=== PATIENT | male | born 1960 | race Caucasian/White ===

== ENCOUNTER 2019-09-16 16:52 | Outpatient (CLI) | payer OTHER, SELFPAY ==
[2019-09-16 17:12] LABS: Basophils Absolute Auto 0.1 K/mm3 (0.0-0.1); Basophils Percent Auto 0.8 % (0.2-1.2); Eosinophils Absolute Auto 0.3 K/mm3 (0-0.3); Eosinophils Percent Auto 4.1 % (0-4.4); Hematocrit 39.3 % (42.0-52.0); Hemoglobin 13.1 g/dL (14.0-18.0); Immature Granulocyte Absolute 0.01 K/mm3 (0.00-0.031); Immature Granulocyte Percent A 0.2 % (0-0.5); Lymphocytes Absolute Auto 1.22 K/mm3 (0.9-3.2); Lymphocytes Percent Auto 18.6 % (18.3-44.2); Mean Corpuscular HGB Conc 33.3 g/dl (32-36); Mean Corpuscular Hemoglobin 30.1 pg (26-34); Mean Corpuscular Volume 90.3 fl (80-100); Mean Platelet Volume 10.7 fl (7.4-10.4); Monocytes Absolute Auto 0.6 K/mm3 (0.1-0.6); Monocytes Percent Auto 8.5 % (2.6-8.5); Neutrophils Absolute Auto 4.5 K/mm3 (1.3-6.7); Neutrophils Percent Auto 67.8 % (45.5-73.1); Platelet Count Result 213 k/mm3 (150-375); Red Blood Count 4.35 M/mm3 (4.6-6.20); Red Cell Distribution Width 14.4 % (11.5-14.5); White Blood Count 6.6 K/mm3 (4.5-10.0)
[2019-09-16 17:26] LABS: Alanine Aminotransferase 32 U/L (4-50); Albumin Level 4.2 g/dL (3.5-5.1); Alkaline Phosphatase 45 U/L (38-126); Aspartate Amino Transferase 30 U/L (17-59); Bilirubin,Total 0.4 mg/dL (0.2-1.3); Blood Urea Nitrogen 25 mg/dL (9-20); Calcium 9.3 mg/dL (8.4-10.2); Carbon Dioxide 28 mmol/L (22-30); Chloride 97 mmol/L (98-107); Estimated Glomerular Filt Rate 56; Glucose 99 mg/dL (75-110); Potassium 3.8 mmol/L (3.4-5.0); Sodium 139 mmol/L (137-145)
[2019-09-21 16:00] LABS: BCR/abl Prior Result See Report; BCR/abl1/abl1% (IS) 0.916 %
[2019-09-21 16:46] LABS: BCR/abl P210 Detected
[2019-09-21 16:47] LABS: BCR/abl P210 Chg YES
== END 2019-09-16 16:53 | disposition home or self-care (01) ==
LOC: ANHLAB 16:52
PROVIDERS: PCP Internal Medicine; Visit Provider Internal Medicine Hematology & Oncology
DX: C92.10 Chronic myeloid leukemia, BCR/ABL-positive, not having achieved remission (principal)
CPT/HCPCS: 36415; 80053; 81207; 85025

== ENCOUNTER 2019-12-10 15:55 | Outpatient (CLI) | payer OTHER, SELFPAY ==
[2019-12-10 16:44] LABS: Basophils Percent Auto 0.5 % (0.2-1.2); Eosinophils Absolute Auto 0.3 K/mm3 (0-0.3); Eosinophils Percent Auto 3.2 % (0-4.4); Hematocrit 41.7 % (42.0-52.0); Hemoglobin 14.2 g/dL (14.0-18.0); Immature Granulocyte Absolute 0.03 K/mm3 (0.00-0.031); Immature Granulocyte Percent A 0.4 % (0-0.5); Lymphocytes Percent Auto 12.9 % (18.3-44.2); Mean Corpuscular HGB Conc 34.1 g/dl (32-36); Mean Corpuscular Hemoglobin 30.7 pg (26-34); Mean Corpuscular Volume 90.3 fl (80-100); Mean Platelet Volume 10.7 fl (7.4-10.4); Monocytes Absolute Auto 0.6 K/mm3 (0.1-0.6); Monocytes Percent Auto 7.4 % (2.6-8.5); Neutrophils Absolute Auto 6.5 K/mm3 (1.3-6.7); Neutrophils Percent Auto 75.6 % (45.5-73.1); Platelet Count Result 206 k/mm3 (150-375); Red Blood Count 4.62 M/mm3 (4.6-6.20); Red Cell Distribution Width 12.8 % (11.5-14.5); White Blood Count 8.6 K/mm3 (4.5-10.0)
[2019-12-10 17:01] LABS: Alanine Aminotransferase 27 U/L (4-50); Albumin Level 4.6 g/dL (3.5-5.1); Alkaline Phosphatase 55 U/L (38-126); Aspartate Amino Transferase 28 U/L (17-59); Bilirubin,Total 0.5 mg/dL (0.2-1.3); Blood Urea Nitrogen 20 mg/dL (9-20); Calcium 9.3 mg/dL (8.4-10.2); Carbon Dioxide 31 mmol/L (22-30); Chloride 101 mmol/L (98-107); Estimated Glomerular Filt Rate > 60; Glucose 105 mg/dL (75-110); Potassium 4.1 mmol/L (3.4-5.0); Sodium 139 mmol/L (137-145)
[2019-12-16 12:11] LABS: BCR/abl Prior Result See Report; BCR/abl1/abl1% (IS) 0.124 %
[2019-12-16 12:58] LABS: BCR/abl P210 Detected
[2019-12-16 12:59] LABS: BCR/abl P210 Chg YES
== END 2019-12-10 15:56 | disposition home or self-care (01) ==
PROVIDERS: PCP Internal Medicine; Visit Provider Internal Medicine Hematology & Oncology
DX: C92.10 Chronic myeloid leukemia, BCR/ABL-positive, not having achieved remission (principal)
CPT/HCPCS: 36415; 80053; 81207; 85025

== ENCOUNTER 2020-02-03 07:45 | Outpatient (CLI) | payer OTHER, SELFPAY ==
[2020-02-03 08:15] LABS: Cholesterol 117 mg/dL (0-200); HDL Direct 29 mg/dL; Triglycerides 111 mg/dL (<150)
[2020-02-03 08:25] LABS: LDL Cholesterol Direct 66 mg/dL
[2020-02-03 08:47] LABS: Prostate Specific Antigen 0.8 ng/mL (< OR = 4.0)
== END 2020-02-03 07:46 | disposition home or self-care (01) ==
PROVIDERS: PCP Internal Medicine; Visit Provider Clinical Nurse Specialist
DX: Z13.220 Encounter for screening for lipoid disorders (principal); Z12.5 Encounter for screening for malignant neoplasm of prostate
CPT/HCPCS: 36415; 80061; 84153; G0103

== ENCOUNTER 2020-03-09 17:04 | Outpatient (CLI) | payer OTHER, SELFPAY ==
[2020-03-09 17:26] LABS: Basophils Percent Auto 0.4 % (0.2-1.2); Eosinophils Absolute Auto 0.2 K/mm3 (0-0.3); Eosinophils Percent Auto 2.9 % (0-4.4); Hematocrit 36.9 % (42.0-52.0); Hemoglobin 12.7 g/dL (14.0-18.0); Immature Granulocyte Absolute 0.01 K/mm3 (0.00-0.031); Immature Granulocyte Percent A 0.1 % (0-0.5); Lymphocytes Absolute Auto 1.27 K/mm3 (0.9-3.2); Lymphocytes Percent Auto 18.7 % (18.3-44.2); Mean Corpuscular HGB Conc 34.4 g/dl (32-36); Mean Corpuscular Hemoglobin 30.9 pg (26-34); Mean Corpuscular Volume 89.8 fl (80-100); Mean Platelet Volume 10.7 fl (7.4-10.4); Monocytes Absolute Auto 0.5 K/mm3 (0.1-0.6); Monocytes Percent Auto 6.8 % (2.6-8.5); Neutrophils Absolute Auto 4.8 K/mm3 (1.3-6.7); Neutrophils Percent Auto 71.1 % (45.5-73.1); Platelet Count Result 200 k/mm3 (150-375); Red Blood Count 4.11 M/mm3 (4.6-6.20); Red Cell Distribution Width 13.7 % (11.5-14.5); White Blood Count 6.8 K/mm3 (4.5-10.0)
[2020-03-09 17:38] LABS: Alanine Aminotransferase 21 U/L (4-50); Albumin Level 4.3 g/dL (3.5-5.1); Alkaline Phosphatase 45 U/L (38-126); Anion Gap 10.8 mmol/L (7-16); Aspartate Amino Transferase 25 U/L (17-59); Bilirubin,Total 0.5 mg/dL (0.2-1.3); Blood Urea Nitrogen 22 mg/dL (9-20); Calcium 8.7 mg/dL (8.4-10.2); Carbon Dioxide 30 mmol/L (22-30); Chloride 102 mmol/L (98-107); Estimated Glomerular Filt Rate 56; Glucose 101 mg/dL (75-110); Potassium 3.8 mmol/L (3.4-5.0); Sodium 139 mmol/L (137-145)
[2020-03-15 16:19] LABS: BCR/abl Prior Result See Report; BCR/abl1/abl1% (IS) 0.056 %
[2020-03-15 17:05] LABS: BCR/abl P210 Detected
[2020-03-15 17:06] LABS: BCR/abl P210 Chg YES
== END 2020-03-09 17:05 | disposition home or self-care (01) ==
PROVIDERS: PCP Internal Medicine; Visit Provider Internal Medicine Hematology & Oncology
DX: C92.10 Chronic myeloid leukemia, BCR/ABL-positive, not having achieved remission (principal)
CPT/HCPCS: 36415; 80053; 81207; 85025

== ENCOUNTER 2020-06-07 17:04 | Outpatient (CLI) | payer OTHER, SELFPAY ==
[2020-06-07 17:35] LABS: Basophils Percent Auto 0.4 % (0.2-1.2); Eosinophils Absolute Auto 0.4 K/mm3 (0-0.3); Eosinophils Percent Auto 6.2 % (0-4.4); Hematocrit 39.4 % (42.0-52.0); Hemoglobin 13.4 g/dL (14.0-18.0); Immature Granulocyte Absolute 0.01 K/mm3 (0.00-0.031); Immature Granulocyte Percent A 0.1 % (0-0.5); Lymphocytes Absolute Auto 1.39 K/mm3 (0.9-3.2); Mean Corpuscular Hemoglobin 30.8 pg (26-34); Mean Corpuscular Volume 90.6 fl (80-100); Mean Platelet Volume 10.6 fl (7.4-10.4); Monocytes Absolute Auto 0.6 K/mm3 (0.1-0.6); Monocytes Percent Auto 8.2 % (2.6-8.5); Neutrophils Absolute Auto 4.5 K/mm3 (1.3-6.7); Neutrophils Percent Auto 65.1 % (45.5-73.1); Platelet Count Result 212 k/mm3 (150-375); Red Blood Count 4.35 M/mm3 (4.6-6.20); Red Cell Distribution Width 13.2 % (11.5-14.5); White Blood Count 6.9 K/mm3 (4.5-10.0)
[2020-06-07 18:06] LABS: Alanine Aminotransferase 23 U/L (4-50); Albumin Level 4.5 g/dL (3.5-5.1); Alkaline Phosphatase 42 U/L (38-126); Anion Gap 5 mmol/L (8-16); Aspartate Amino Transferase 28 U/L (17-59); Bilirubin,Total 0.4 mg/dL (0.2-1.3); Blood Urea Nitrogen 20 mg/dL (9-20); Calcium 9.2 mg/dL (8.4-10.2); Carbon Dioxide 35 mmol/L (22-30); Chloride 102 mmol/L (98-107); Estimated Glomerular Filt Rate > 60; Glucose 109 mg/dL (75-110); Potassium 3.7 mmol/L (3.4-5.0); Sodium 142 mmol/L (137-145)
[2020-06-11 10:44] LABS: BCR/abl Prior Result See Report; BCR/abl1/abl1% (IS) 0.048 %
[2020-06-11 11:30] LABS: BCR/abl P210 Detected
[2020-06-11 11:31] LABS: BCR/abl P210 Chg YES
== END 2020-06-07 17:05 | disposition home or self-care (01) ==
LOC: ANHLAB 17:07
PROVIDERS: PCP Internal Medicine; Visit Provider Internal Medicine Hematology & Oncology
DX: C92.10 Chronic myeloid leukemia, BCR/ABL-positive, not having achieved remission (principal)
CPT/HCPCS: 36415; 80053; 81207; 85025

== ENCOUNTER 2020-09-13 09:42 | Outpatient (CLI) | payer OTHER, SELFPAY ==
[2020-09-13 10:33] LABS: Basophils Absolute Auto 0.1 K/mm3 (0.0-0.1); Basophils Percent Auto 0.7 % (0.2-1.2); Eosinophils Absolute Auto 0.3 K/mm3 (0-0.3); Eosinophils Percent Auto 4.1 % (0-4.4); Hematocrit 39.9 % (42.0-52.0); Hemoglobin 13.5 g/dL (14.0-18.0); Immature Granulocyte Absolute 0.02 K/mm3 (0.00-0.031); Immature Granulocyte Percent A 0.3 % (0-0.5); Lymphocytes Absolute Auto 1.33 K/mm3 (0.9-3.2); Lymphocytes Percent Auto 18.2 % (18.3-44.2); Mean Corpuscular HGB Conc 33.8 g/dl (32-36); Mean Corpuscular Hemoglobin 31.3 pg (26-34); Mean Corpuscular Volume 92.6 fl (80-100); Mean Platelet Volume 11.2 fl (7.4-10.4); Monocytes Absolute Auto 0.4 K/mm3 (0.1-0.6); Neutrophils Absolute Auto 5.2 K/mm3 (1.3-6.7); Neutrophils Percent Auto 70.7 % (45.5-73.1); Platelet Count Result 209 k/mm3 (150-375); Red Blood Count 4.31 M/mm3 (4.6-6.20); Red Cell Distribution Width 13.2 % (11.5-14.5); White Blood Count 7.3 K/mm3 (4.5-10.0)
[2020-09-13 10:45] LABS: Alanine Aminotransferase 31 U/L (4-50); Albumin Level 4.1 g/dL (3.5-5.1); Alkaline Phosphatase 42 U/L (38-126); Anion Gap 6 mmol/L (8-16); Aspartate Amino Transferase 34 U/L (17-59); Bilirubin,Total 0.6 mg/dL (0.2-1.3); Blood Urea Nitrogen 24 mg/dL (9-20); Carbon Dioxide 31 mmol/L (22-30); Chloride 105 mmol/L (98-107); Estimated Glomerular Filt Rate 56; Glucose 125 mg/dL (75-110); Sodium 142 mmol/L (137-145)
[2020-09-20 13:09] LABS: BCR/abl Prior Result See Report
[2020-09-20 13:55] LABS: BCR/abl P210 Detected; BCR/abl P210 Chg YES
== END 2020-09-13 09:43 | disposition home or self-care (01) ==
PROVIDERS: PCP Internal Medicine; Visit Provider Nurse Practitioner Adult Health
DX: C92.10 Chronic myeloid leukemia, BCR/ABL-positive, not having achieved remission (principal)
CPT/HCPCS: 36415; 80053; 81207; 85025

== ENCOUNTER 2020-10-18 17:13 | Outpatient (CLI) | payer OTHER, SELFPAY | END 2020-10-18 17:14 | disposition home or self-care (01) | LOC: ANHCOVIDVC 17:13 | PROVIDERS: PCP Internal Medicine | DX: Z23 Encounter for immunization (principal) | CPT/HCPCS: 0001A; 91300 ==

== ENCOUNTER 2020-11-08 17:17 | Outpatient (CLI) | payer OTHER, SELFPAY | END 2020-11-08 17:18 | disposition home or self-care (01) | LOC: ANHCOVIDVC 17:17 | PROVIDERS: PCP Internal Medicine | DX: Z23 Encounter for immunization (principal) | CPT/HCPCS: 0002A; 91300 ==

== ENCOUNTER 2020-12-20 13:18 | Outpatient (CLI) | payer OTHER, SELFPAY ==
[2020-12-20 14:11] LABS: Basophils Percent Auto 0.5 % (0.2-1.2); Eosinophils Absolute Auto 0.3 K/mm3 (0-0.3); Eosinophils Percent Auto 4.6 % (0-4.4); Hematocrit 40.2 % (42.0-52.0); Hemoglobin 13.7 g/dL (14.0-18.0); Immature Granulocyte Absolute 0.01 K/mm3 (0.00-0.031); Immature Granulocyte Percent A 0.2 % (0-0.5); Lymphocytes Absolute Auto 1.23 K/mm3 (0.9-3.2); Lymphocytes Percent Auto 19.6 % (18.3-44.2); Mean Corpuscular HGB Conc 34.1 g/dl (32-36); Mean Corpuscular Hemoglobin 30.8 pg (26-34); Mean Corpuscular Volume 90.3 fl (80-100); Mean Platelet Volume 11.2 fl (7.4-10.4); Monocytes Absolute Auto 0.5 K/mm3 (0.1-0.6); Monocytes Percent Auto 7.3 % (2.6-8.5); Neutrophils Absolute Auto 4.3 K/mm3 (1.3-6.7); Neutrophils Percent Auto 67.8 % (45.5-73.1); Platelet Count Result 222 k/mm3 (150-375); Red Blood Count 4.45 M/mm3 (4.6-6.20); Red Cell Distribution Width 13.2 % (11.5-14.5); White Blood Count 6.3 K/mm3 (4.5-10.0)
[2020-12-20 14:54] LABS: Alanine Aminotransferase 33 U/L (4-50); Albumin Level 4.5 g/dL (3.5-5.1); Alkaline Phosphatase 52 U/L (38-126); Anion Gap 7 mmol/L (8-16); Aspartate Amino Transferase 33 U/L (17-59); Bilirubin,Total 0.6 mg/dL (0.2-1.3); Blood Urea Nitrogen 20 mg/dL (9-20); Calcium 9.5 mg/dL (8.4-10.2); Carbon Dioxide 29 mmol/L (22-30); Chloride 104 mmol/L (98-107); Estimated Glomerular Filt Rate > 60; Glucose 98 mg/dL (75-110); Potassium 3.6 mmol/L (3.4-5.0); Sodium 140 mmol/L (137-145)
[2020-12-23 10:23] LABS: BCR/abl Prior Result See Report; BCR/abl1/abl1% (IS) 0.018 %
[2020-12-23 11:09] LABS: BCR/abl P210 Detected; BCR/abl P210 Chg YES
== END 2020-12-20 13:19 | disposition home or self-care (01) ==
LOC: ANHLAB 13:20
PROVIDERS: PCP Internal Medicine; Visit Provider Internal Medicine Hematology & Oncology
DX: C92.10 Chronic myeloid leukemia, BCR/ABL-positive, not having achieved remission (principal)
CPT/HCPCS: 36415; 80053; 81207; 85025

== ENCOUNTER 2021-05-23 17:14 | Outpatient (CLI) | payer OTHER, SELFPAY ==
[2021-05-23 17:33] LABS: Basophils Absolute Auto 0.1 K/mm3 (0.0-0.1); Basophils Percent Auto 0.7 % (0.2-1.2); Eosinophils Absolute Auto 0.3 K/mm3 (0-0.3); Eosinophils Percent Auto 4.6 % (0-4.4); Hematocrit 39.4 % (42.0-52.0); Hemoglobin 13.4 g/dL (14.0-18.0); Immature Granulocyte Absolute 0.01 K/mm3 (0.00-0.031); Immature Granulocyte Percent A 0.1 % (0-0.5); Lymphocytes Absolute Auto 1.23 K/mm3 (0.9-3.2); Lymphocytes Percent Auto 17.9 % (18.3-44.2); Mean Corpuscular Hemoglobin 31.8 pg (26-34); Mean Corpuscular Volume 93.4 fl (80-100); Mean Platelet Volume 10.7 fl (7.4-10.4); Monocytes Absolute Auto 0.6 K/mm3 (0.1-0.6); Monocytes Percent Auto 8.3 % (2.6-8.5); Neutrophils Absolute Auto 4.7 K/mm3 (1.3-6.7); Neutrophils Percent Auto 68.4 % (45.5-73.1); Platelet Count Result 207 k/mm3 (150-375); Red Blood Count 4.22 M/mm3 (4.6-6.20); Red Cell Distribution Width 13.2 % (11.5-14.5); White Blood Count 6.9 K/mm3 (4.5-10.0)
[2021-05-23 17:45] LABS: Alanine Aminotransferase 33 U/L (4-50); Albumin Level 4.7 g/dL (3.5-5.1); Alkaline Phosphatase 42 U/L (38-126); Anion Gap 9 mmol/L (8-16); Aspartate Amino Transferase 28 U/L (17-59); Bilirubin,Total 0.4 mg/dL (0.2-1.3); Blood Urea Nitrogen 18 mg/dL (9-20); Calcium 9.1 mg/dL (8.4-10.2); Carbon Dioxide 31 mmol/L (22-30); Chloride 100 mmol/L (98-107); Cholesterol 132 mg/dL (0-200); Estimated Glomerular Filt Rate > 60; Glucose 107 mg/dL (65-110); HDL Direct 34 mg/dL; Potassium 3.8 mmol/L (3.4-5.0); Sodium 140 mmol/L (137-145); Triglycerides 143 mg/dL (<150)
[2021-05-23 17:55] LABS: LDL Cholesterol Direct 78 mg/dL
[2021-05-23 18:15] LABS: Prostate Specific Antigen 0.8 ng/mL (< OR = 4.0)
== END 2021-05-23 17:15 | disposition home or self-care (01) ==
PROVIDERS: PCP Internal Medicine; Visit Provider Clinical Nurse Specialist
DX: Z12.5 Encounter for screening for malignant neoplasm of prostate (principal); I10 Essential (primary) hypertension; Z13.220 Encounter for screening for lipoid disorders
CPT/HCPCS: 36415; 80053; 80061; 84153; 85025; G0103

== ENCOUNTER 2021-06-27 15:46 | Outpatient (CLI) | payer OTHER, SELFPAY ==
[2021-06-27 16:24] LABS: Basophils Absolute Auto 0.1 K/mm3 (0.0-0.1); Basophils Percent Auto 0.6 % (0.2-1.2); Eosinophils Absolute Auto 0.3 K/mm3 (0-0.3); Eosinophils Percent Auto 4.1 % (0-4.4); Hematocrit 38.7 % (42.0-52.0); Hemoglobin 13.2 g/dL (14.0-18.0); Immature Granulocyte Absolute 0.02 K/mm3 (0.00-0.031); Immature Granulocyte Percent A 0.2 % (0-0.5); Lymphocytes Absolute Auto 1.33 K/mm3 (0.9-3.2); Lymphocytes Percent Auto 16.6 % (18.3-44.2); Mean Corpuscular HGB Conc 34.1 g/dl (32-36); Mean Corpuscular Hemoglobin 31.5 pg (26-34); Mean Corpuscular Volume 92.4 fl (80-100); Mean Platelet Volume 10.7 fl (7.4-10.4); Monocytes Absolute Auto 0.6 K/mm3 (0.1-0.6); Monocytes Percent Auto 6.8 % (2.6-8.5); Neutrophils Absolute Auto 5.8 K/mm3 (1.3-6.7); Neutrophils Percent Auto 71.7 % (45.5-73.1); Platelet Count Result 191 k/mm3 (150-375); Red Blood Count 4.19 M/mm3 (4.6-6.20); Red Cell Distribution Width 13.3 % (11.5-14.5)
[2021-06-27 16:36] LABS: Alanine Aminotransferase 34 U/L (4-50); Albumin Level 4.2 g/dL (3.5-5.1); Alkaline Phosphatase 45 U/L (38-126); Anion Gap 4 mmol/L (8-16); Aspartate Amino Transferase 31 U/L (17-59); Bilirubin,Total 0.5 mg/dL (0.2-1.3); Blood Urea Nitrogen 26 mg/dL (9-20); Calcium 9.3 mg/dL (8.4-10.2); Carbon Dioxide 32 mmol/L (22-30); Chloride 105 mmol/L (98-107); Estimated Glomerular Filt Rate > 60; Glucose 128 mg/dL (65-110); Sodium 141 mmol/L (137-145)
[2021-07-01 14:12] LABS: BCR/abl Prior Result See Report; BCR/abl1/abl1% (IS) 0.014 %
[2021-07-01 14:57] LABS: BCR/abl P210 Detected
[2021-07-01 14:58] LABS: BCR/abl P210 Chg YES
== END 2021-06-27 15:47 | disposition home or self-care (01) ==
LOC: ANHLAB 15:48
PROVIDERS: PCP Internal Medicine; Visit Provider Internal Medicine Hematology & Oncology
DX: C92.10 Chronic myeloid leukemia, BCR/ABL-positive, not having achieved remission (principal)
CPT/HCPCS: 36415; 80053; 81207; 85025

== ENCOUNTER 2021-11-16 22:17 | Emergency (ER) | payer OTHER, SELFPAY ==
--- NOTE | ~2021-11-16 | XR_ITS ---
EXAMINATION: XR chest 1V portable INDICATION: Shortness of breath TECHNIQUE: Portable AP chest at 0056 hours COMPARISON: 11/13/2018 FINDINGS: The lungs are free of acute opacities. There is no pleural effusion or pneumothorax. The he art size is upper limits of normal for technique. IMPRESSION: 1. No acute cardiopulmonary abnormality. Reviewed, dictated and finalized at location A.
--- NOTE | ~2021-11-16 | CT_ITS ---
EXAMINATION: CT brain wo con INDICATION: Headache COMPARISON: None TECHNIQUE: Standard unenhanced head CT. The dose-length product (DLP) was 681.00 mGy-cm. The mA was a djusted according to patient size. Iterative reconstruction technique was employed. FINDINGS: There is no intracranial hemorrhage, acute infarction, or abnormal mass lesion. The ventric les are normal. There is no abnormal mass effect or midline shift. The hassan-white matter differentiat ion is normal. The basal cisterns are patent. The orbits are normal. There is mild mucosal thickening of the paranasal sinuses. IMPRESSION: 1. No acute intracranial abnormality. Reviewed, dictated and finalized at location A.
[2021-11-16 22:21] VITALS: BP 145/86; PULSE 80; RESP 16; TEMP 36.3; O2SAT 98
[2021-11-17] VITALS (9 sets, daily range): BP systolic 117–131; BP diastolic 78–85; PULSE 71–82; RESP 16–20; O2SAT 96–99
--- NOTE | 2021-11-17 00:25 | ECG_ITS ---
Measurements Intervals [place] Rate: 74 P: 0 NE: 191 QRS: -16 QRSD: 96 T: 43 QT: 388 QTc: 432 Interpretive Statements SINUS RHYTHM POSSIBLE RIGHT VENTRICULAR CONDUCTION DELAY [RSR (QR) IN V1/V2] MODERATE VOLTAGE CRITERIA FOR LVH, CONSIDER NORMAL VARIANT [MEETS CRITERIA IN ONE OF: R(aVL), S(V1), R(V5), R(V5/V6)+S(V1)] ABNORMAL ECG Electronically Signed On 11-17-2021 16:48:54 CDT by Tre Mendoza M.D.
--- NOTE | 2021-11-17 00:26 | ED.GENADULT ---
HPI - General Adult General Chief complaint: Extremity Problem,Nontraumatic Stated complaint: L leg tingling, H/A, dizziness Time Seen by Provider: 11/17/21 00:18 Source: patient and family Mode of arrival: ambulatory Limitations: no limitations History of Present Illness HPI narrative: 61-year-old male presents to emergency room accompanied by his . Actually comes in with a multitude of issues. They are out of town on vacation a few weeks ago in [place] and he has some severe vertigo. Also been having some issues with his blood pressure not being adequately controlled. He had some muscle spasms and cramps to his left calf and several days ago and still having some aching from that. Get some numbness down his left leg. Denies any back pain. was concerned today and she thought maybe he was having little drooping to the right side of his face. However does get no weakness to his arms or legs. He is speaking clearly. Walking without any difficulty. 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 Related Data Home Medications Medication Instructions Recorded Confirmed imatinib 400 mg tablet 400 mg PO DAILY 03/24/20 06/09/21 Allergies Allergy/AdvReac Type Severity Reaction Status Date / Time No Known Allergies Allergy Unverified 03/03/19 11:15 Review of Systems Review of Systems: CONSTITUTIONAL: Denies fever, chills, or sweats. EYES: Denies visual changes, redness, or discharge. ENT: Denies rhinorrhea, congestion, sore throat, or otalgia. CARDIOVASCULAR: Denies chest pain, palpitations, or edema. RESPIRATORY: Denies cough or dyspnea. GASTROINTESTINAL: Denies abdominal pain, nausea, vomiting, or diarrhea. GENITOURINARY: Denies dysuria or hematuria. SKIN: Denies rash or itching. MUSCULOSKELETAL: Has some edema to his lower extremities but more dependent in nature. Having some numbness to his left leg. NEUROLOGIC: Denies headache, numbness, or weakness. PSYCHIATRIC: Denies anxiety or depression. [facility] Family History Family History Father Hypertension Family history of chronic obstructive pulmonary disease Other Family history of osteoporosis Family history of rheumatoid arthritis Social History Social History Smoking status: Never smoker Second hand tobacco smoke exposure: No Alcohol intake: never Exam Narrative: APPEARANCE: Well appearing, no pain or distress, well-nourished. Head normocephalic and atraumatic. EYES: PERRLA/EOMI, conjunctivae very clear. NOSE: Normal with no drainage EARS:TMS clear Андрей [place], with good light reflex. THROAT: Pharynx clear, no exudate. NECK: Supple. No adenopathy, no masses. RESPIRATORY: Airway patent, respirations nonlabored. Clear to auscultation bilaterally, no rales, rhonchi, wheezing. CARDIOVASCULAR: Regular rate and rhythm without murmurs, rubs, or gallops. ABDOMINAL: Soft, nontender, nondistended, no hepatosplenomegaly Musculoskeletal: Moves all extremities. Strength/ROM intact, No calf tenderness. . +2/4 pitting edema both lower extremities equal. NEURO: Alert. Cranial nerves II through XII intact. Normal gait. Good coordination. Nonfocal examination. SKIN:: Warm, dry. Normal Color PSYCHIATRIC: Normal affect/mood, normal interaction Course Vital Signs Vital signs: Vital Signs Temperature 97.4 F L 11/16/21 22:21 Pulse Rate 80 11/16/21 22:21 Respiratory Rate 16 11/16/21 22:21 Blood Pressure 145/86 H 11/16/21 22:21 Pulse Oximetry 98 11/16/21 22:21 Temperature 97.4 F L 11/16/21 22:21 Pulse Rate 79 11/17/21 00:47 Respiratory Rate 18 11/17/21 00:47 Blood Pressure 120/85 11/17/21 00:47 Pulse Oximetry 97 11/17/21 00:47 Medical Decision Making [facility] Narrative Medical decision making narrative: Patient has multiple vague complaints. Work-up and evaluation shows no acut
[2021-11-17 01:14] LABS: Basophils Absolute Auto 0.1 K/mm3 (0.0-0.1); Basophils Percent Auto 0.7 % (0.2-1.2); Eosinophils Absolute Auto 0.4 K/mm3 (0-0.3); Eosinophils Percent Auto 5.2 % (0-4.4); Hematocrit 39.2 % (42.0-52.0); Hemoglobin 13.5 g/dL (14.0-18.0); Immature Granulocyte Absolute 0.01 K/mm3 (0.00-0.031); Immature Granulocyte Percent A 0.1 % (0-0.5); Lymphocytes Absolute Auto 1.59 K/mm3 (0.9-3.2); Lymphocytes Percent Auto 22.6 % (18.3-44.2); Mean Corpuscular HGB Conc 34.4 g/dl (32-36); Mean Corpuscular Hemoglobin 31.2 pg (26-34); Mean Corpuscular Volume 90.5 fl (80-100); Mean Platelet Volume 11.5 fl (7.4-10.4); Monocytes Absolute Auto 0.6 K/mm3 (0.1-0.6); Monocytes Percent Auto 8.4 % (2.6-8.5); Neutrophils Absolute Auto 4.4 K/mm3 (1.3-6.7); Platelet Count Result 207 k/mm3 (150-375); Red Blood Count 4.33 M/mm3 (4.6-6.20); Red Cell Distribution Width 13.1 % (11.5-14.5); White Blood Count 7.1 K/mm3 (4.5-10.0)
[2021-11-17 01:19] LABS: Alanine Aminotransferase 53 U/L (4-50); Albumin Level 4.3 g/dL (3.5-5.1); Alkaline Phosphatase 40 U/L (38-126); Anion Gap 9 mmol/L (8-16); Aspartate Amino Transferase 50 U/L (17-59); Bilirubin,Total 0.3 mg/dL (0.2-1.3); Blood Urea Nitrogen 27 mg/dL (9-20); Calcium 8.6 mg/dL (8.4-10.2); Carbon Dioxide 23 mmol/L (22-30); Chloride 107 mmol/L (98-107); Estimated CRCL calculation 75 ml/min; Estimated Glomerular Filt Rate > 60; Glucose 107 mg/dL (65-110); Potassium 3.7 mmol/L (3.4-5.0); Sodium 139 mmol/L (137-145)
== END 2021-11-17 01:59 | disposition home or self-care (01) ==
PROVIDERS: Emergency Provider Emergency Medicine; PCP Internal Medicine
DX: M79.662 Pain in left lower leg (principal); R60.9 Edema, unspecified; C92.11 Chronic myeloid leukemia, BCR/ABL-positive, in remission
CPT/HCPCS: 36415; 70450; 71045; 80053; 85025; 93005; 99284

== ENCOUNTER 2021-11-17 15:20 | Outpatient (CLI) | payer OTHER, SELFPAY ==
--- NOTE | ~2021-11-17 | XR_ITS ---
XR lumbar spine min 4V DATE: 11/17/2021 15:39 INDICATION: Left leg pain. Anesthesias skin. Leg cramping. No injury. TECHNIQUE: AP, lateral, coned lateral lumbosacral and bilateral oblique views COMPARISON: None FINDINGS: There is mild levoscoliosis of the thoracolumbar spine. Degenerative spurring in the lower thoracic spine. No fracture or bone destruction, spondylolysis or spondylolisthesis. There is mild to moderate degene rative disc disease throughout the lumbar spine. The sacroiliac joints are intact. IMPRESSION: Mild thoracolumbar levoscoliosis Mild to moderate degenerative disc disease of the lumbar spine Reviewed, dictated and finalized at location A.
--- NOTE | ~2021-11-17 | US_ITS ---
EXAMINATION: US venous doppler [facility] DATE: 11/17/2021 16:05 INDICATION: Left lower limb pain. TECHNIQUE: Grayscale ultrasound images without and with compression and Doppler ultrasound images of the left lower extremity veins were obtained. COMPARISON: Left knee MRI 05/16/2016 FINDINGS: The visualized portions of left common femoral vein, profunda (deep) femoral vein, femoral vein, popl iteal vein, peroneal veins, posterior tibial veins, and greater saphenous vein outflow are patent. Th ere is a moderate-sized left Del Castillo's cyst. IMPRESSION: 1. No deep venous thrombosis. 2. Moderate-sized left De Lcastillo's cyst. Reviewed, dictated and finalized at location A. IMPRESSION: 1. No deep venous thrombosis. 2. Moderate-sized left Del Castillo's cyst.
== END 2021-11-17 15:21 | disposition home or self-care (01) ==
LOC: ANHIMG 15:22
PROVIDERS: PCP Internal Medicine; Visit Provider Nurse Practitioner
DX: M79.605 Pain in left leg (principal); R60.9 Edema, unspecified; R20.0 Anesthesia of skin; M51.36 Other intervertebral disc degeneration, lumbar region; M71.22 Synovial cyst of popliteal space [Baker], left knee
CPT/HCPCS: 72110; 93971

== ENCOUNTER 2021-11-25 13:26 | Outpatient (CLI) | payer OTHER, SELFPAY ==
--- NOTE | ~2021-11-25 | MR_ITS ---
EXAMINATION: MR brain/brain stem wo/w con DATE: 11/25/2021 14:46 INDICATION: Headache, unspecified. TECHNIQUE: Magnetic resonance imaging (MRI) of the brain and brainstem was performed without and with 20 mL MultiHance intravenous contrast. COMPARISON: Head CT 11/17/2021 FINDINGS: There are scattered areas of nonspecific increased T2-weighted signal intensity in the cere bral white matter, which is within normal limits for the patient's age. There is no intracranial hemo rrhage, acute infarction, or abnormal intracranial mass lesion. The ventricles are normal in size. Th e internal auditory canals and inner and middle ears are normal. The mastoid air cells are normal. Th ere is mild mucosal thickening in the paranasal sinuses. The orbits are normal. IMPRESSION: 1. Normal aging brain. Reviewed, dictated and finalized at location B. IMPRESSION: 1. Normal aging brain.
== END 2021-11-25 13:27 | disposition home or self-care (01) ==
PROVIDERS: PCP Internal Medicine; Visit Provider Nurse Practitioner
DX: R42 Dizziness and giddiness (principal); R51.9 Headache, unspecified
CPT/HCPCS: 70553; A9577

== ENCOUNTER 2022-01-03 11:52 | Outpatient (CLI) | payer OTHER, SELFPAY ==
[2022-01-03 12:14] LABS: Basophils Percent Auto 0.6 % (0.2-1.2); Eosinophils Absolute Auto 0.3 K/mm3 (0-0.3); Eosinophils Percent Auto 5.2 % (0-4.4); Hematocrit 39.9 % (42.0-52.0); Hemoglobin 13.8 g/dL (14.0-18.0); Immature Granulocyte Absolute 0.02 K/mm3 (0.00-0.031); Immature Granulocyte Percent A 0.3 % (0-0.5); Lymphocytes Percent Auto 18.8 % (18.3-44.2); Mean Corpuscular HGB Conc 34.6 g/dl (32-36); Mean Corpuscular Hemoglobin 31.2 pg (26-34); Mean Corpuscular Volume 90.3 fl (80-100); Mean Platelet Volume 10.7 fl (7.4-10.4); Monocytes Absolute Auto 0.4 K/mm3 (0.1-0.6); Monocytes Percent Auto 6.7 % (2.6-8.5); Neutrophils Absolute Auto 4.4 K/mm3 (1.3-6.7); Neutrophils Percent Auto 68.4 % (45.5-73.1); Platelet Count Result 206 k/mm3 (150-375); Red Blood Count 4.42 M/mm3 (4.6-6.20); Red Cell Distribution Width 13.2 % (11.5-14.5); White Blood Count 6.4 K/mm3 (4.5-10.0)
[2022-01-03 12:33] LABS: Alanine Aminotransferase 52 U/L (6-50); Albumin Level 4.2 g/dL (3.5-5.1); Alkaline Phosphatase 48 U/L (38-126); Anion Gap 8 mmol/L (8-16); Aspartate Amino Transferase 59 U/L (17-59); Bilirubin,Total 0.4 mg/dL (0.2-1.3); Blood Urea Nitrogen 18 mg/dL (9-20); Calcium 8.8 mg/dL (8.4-10.2); Carbon Dioxide 28 mmol/L (22-30); Chloride 104 mmol/L (98-107); Estimated Glomerular Filt Rate > 60; Glucose 108 mg/dL (65-110); Potassium 4.3 mmol/L (3.4-5.0); Sodium 140 mmol/L (137-145)
[2022-01-05 15:53] LABS: BCR/abl P210 Detected; BCR/abl Prior Result See Report; BCR/abl1/abl1% (IS) 0.011 %
[2022-01-05 15:54] LABS: BCR/abl P210 Chg YES
== END 2022-01-03 11:53 | disposition home or self-care (01) ==
LOC: ANHLAB 11:54
PROVIDERS: PCP Internal Medicine; Visit Provider Internal Medicine Hematology & Oncology
DX: C92.10 Chronic myeloid leukemia, BCR/ABL-positive, not having achieved remission (principal)
CPT/HCPCS: 36415; 80053; 81207; 85025

== ENCOUNTER 2022-07-10 17:07 | Outpatient (CLI) | payer OTHER, SELFPAY ==
[2022-07-10 17:55] LABS: Basophils Absolute Auto 0.1 K/mm3 (0.0-0.1); Basophils Percent Auto 0.7 % (0.2-1.2); Eosinophils Absolute Auto 0.4 K/mm3 (0-0.3); Eosinophils Percent Auto 5.7 % (0-4.4); Hematocrit 39.3 % (42.0-52.0); Hemoglobin 13.6 g/dL (14.0-18.0); Immature Granulocyte Absolute 0.01 K/mm3 (0.00-0.031); Immature Granulocyte Percent A 0.1 % (0-0.5); Lymphocytes Absolute Auto 1.44 K/mm3 (0.9-3.2); Mean Corpuscular HGB Conc 34.6 g/dl (32-36); Mean Corpuscular Hemoglobin 31.1 pg (26-34); Mean Corpuscular Volume 89.9 fl (80-100); Mean Platelet Volume 10.9 fl (7.4-10.4); Monocytes Absolute Auto 0.5 K/mm3 (0.1-0.6); Monocytes Percent Auto 7.4 % (2.6-8.5); Neutrophils Absolute Auto 4.8 K/mm3 (1.3-6.7); Neutrophils Percent Auto 66.1 % (45.5-73.1); Platelet Count Result 220 k/mm3 (150-375); Red Blood Count 4.37 M/mm3 (4.6-6.20); Red Cell Distribution Width 13.1 % (11.5-14.5); White Blood Count 7.2 K/mm3 (4.5-10.0)
[2022-07-10 18:07] LABS: Alanine Aminotransferase 53 U/L (6-50); Albumin Level 4.6 g/dL (3.5-5.1); Alkaline Phosphatase 50 U/L (38-126); Anion Gap 10 mmol/L (8-16); Aspartate Amino Transferase 42 U/L (17-59); Bilirubin,Total 0.5 mg/dL (0.2-1.3); Blood Urea Nitrogen 17 mg/dL (9-20); Calcium 8.8 mg/dL (8.4-10.2); Carbon Dioxide 31 mmol/L (22-30); Chloride 99 mmol/L (98-107); Estimated Glomerular Filt Rate 56; Glucose 95 mg/dL (65-110); Sodium 140 mmol/L (137-145)
[2022-07-14 14:45] LABS: BCR/abl Prior Result See Report
[2022-07-14 15:32] LABS: BCR/abl P210 Detected
[2022-07-14 15:33] LABS: BCR/abl P210 Chg YES
== END 2022-07-10 17:08 | disposition home or self-care (01) ==
PROVIDERS: PCP Internal Medicine; Visit Provider Internal Medicine Hematology & Oncology
DX: C92.10 Chronic myeloid leukemia, BCR/ABL-positive, not having achieved remission (principal)
CPT/HCPCS: 36415; 80053; 81207; 85025

== ENCOUNTER 2023-01-04 16:59 | Outpatient (CLI) | payer OTHER, SELFPAY ==
[2023-01-04 17:52] LABS: Basophils Absolute Auto 0.1 K/mm3 (0.0-0.1); Basophils Percent Auto 0.9 % (0.2-1.2); Eosinophils Absolute Auto 0.5 K/mm3 (0-0.3); Eosinophils Percent Auto 6.5 % (0-4.4); Hematocrit 38.8 % (42.0-52.0); Hemoglobin 13.3 g/dL (14.0-18.0); Immature Granulocyte Absolute 0.01 K/mm3 (0.00-0.031); Immature Granulocyte Percent A 0.1 % (0-0.5); Lymphocytes Absolute Auto 1.37 K/mm3 (0.9-3.2); Lymphocytes Percent Auto 19.8 % (18.3-44.2); Mean Corpuscular HGB Conc 34.3 g/dl (32-36); Mean Corpuscular Hemoglobin 31.1 pg (26-34); Mean Corpuscular Volume 90.7 fl (80-100); Mean Platelet Volume 11.2 fl (7.4-10.4); Monocytes Absolute Auto 0.5 K/mm3 (0.1-0.6); Monocytes Percent Auto 7.8 % (2.6-8.5); Neutrophils Absolute Auto 4.5 K/mm3 (1.3-6.7); Neutrophils Percent Auto 64.9 % (45.5-73.1); Platelet Count Result 216 k/mm3 (150-375); Red Blood Count 4.28 M/mm3 (4.6-6.20); Red Cell Distribution Width 13.3 % (11.5-14.5); White Blood Count 6.9 K/mm3 (4.5-10.0)
[2023-01-04 18:02] LABS: Alanine Aminotransferase 78 U/L (6-50); Albumin Level 4.5 g/dL (3.5-5.1); Alkaline Phosphatase 41 U/L (38-126); Anion Gap 8 mmol/L (8-16); Aspartate Amino Transferase 67 U/L (17-59); Bilirubin,Total 0.5 mg/dL (0.2-1.3); Blood Urea Nitrogen 19 mg/dL (9-20); Calcium 8.6 mg/dL (8.4-10.2); Carbon Dioxide 30 mmol/L (22-30); Chloride 100 mmol/L (98-107); Estimated Glomerular Filt Rate > 60; Glucose 115 mg/dL (65-110); Potassium 3.4 mmol/L (3.4-5.0); Sodium 138 mmol/L (137-145)
[2023-01-10 10:59] LABS: BCR/abl Prior Result See Report; BCR/abl1/abl1% (IS) 0.005 %
[2023-01-10 11:46] LABS: BCR/abl P210 Detected
[2023-01-10 11:47] LABS: BCR/abl P210 Chg YES
== END 2023-01-04 17:00 | disposition home or self-care (01) ==
LOC: ANHLAB 17:01
PROVIDERS: PCP Internal Medicine; Visit Provider Internal Medicine Hematology & Oncology
DX: C92.10 Chronic myeloid leukemia, BCR/ABL-positive, not having achieved remission (principal)
CPT/HCPCS: 36415; 80053; 81207; 85025

== ENCOUNTER 2023-04-17 16:49 | Outpatient (CLI) | payer OTHER, SELFPAY ==
[2023-04-17 18:23] LABS: Basophils Percent Auto 0.5 % (0.2-1.2); Eosinophils Absolute Auto 0.5 K/mm3 (0-0.3); Eosinophils Percent Auto 5.7 % (0-4.4); Hematocrit 38.1 % (42.0-52.0); Immature Granulocyte Absolute 0.03 K/mm3 (0.00-0.031); Immature Granulocyte Percent A 0.4 % (0-0.5); Lymphocytes Absolute Auto 1.31 K/mm3 (0.9-3.2); Lymphocytes Percent Auto 16.6 % (18.3-44.2); Mean Corpuscular HGB Conc 34.1 g/dl (32-36); Mean Corpuscular Hemoglobin 31.8 pg (26-34); Mean Corpuscular Volume 93.2 fl (80-100); Mean Platelet Volume 11.1 fl (7.4-10.4); Monocytes Absolute Auto 0.5 K/mm3 (0.1-0.6); Monocytes Percent Auto 6.4 % (2.6-8.5); Neutrophils Absolute Auto 5.6 K/mm3 (1.3-6.7); Neutrophils Percent Auto 70.4 % (45.5-73.1); Platelet Count Result 216 k/mm3 (150-375); Red Blood Count 4.09 M/mm3 (4.6-6.20); Red Cell Distribution Width 13.3 % (11.5-14.5); White Blood Count 7.9 K/mm3 (4.5-10.0)
[2023-04-17 19:13] LABS: Alanine Aminotransferase 75 U/L (6-50); Albumin Level 4.4 g/dL (3.5-5.1); Alkaline Phosphatase 42 U/L (38-126); Anion Gap 9 mmol/L (8-16); Aspartate Amino Transferase 71 U/L (17-59); Bilirubin,Total 0.6 mg/dL (0.2-1.3); Blood Urea Nitrogen 19 mg/dL (9-20); Calcium 9.2 mg/dL (8.4-10.2); Carbon Dioxide 29 mmol/L (22-30); Chloride 101 mmol/L (98-107); Estimated Glomerular Filt Rate > 60; Glucose 121 mg/dL (65-110); Potassium 3.4 mmol/L (3.4-5.0); Sodium 139 mmol/L (137-145)
[2023-04-23 10:20] LABS: BCR/abl P210 Not Detected; BCR/abl Prior Result See Report
[2023-04-23 10:21] LABS: BCR/abl P210 Chg YES
== END 2023-04-17 16:50 | disposition home or self-care (01) ==
LOC: ANHLAB 16:51
PROVIDERS: PCP Internal Medicine; Visit Provider Internal Medicine Hematology & Oncology
DX: C92.10 Chronic myeloid leukemia, BCR/ABL-positive, not having achieved remission (principal)
CPT/HCPCS: 36415; 80053; 81207; 85025

== ENCOUNTER 2023-06-07 07:37 | Outpatient (CLI) | payer OTHER, SELFPAY ==
--- NOTE | ~2023-06-07 | US_ITS ---
EXAMINATION: US abdomen limited DATE: 06/07/2023 08:19 INDICATION: Elevated liver function tests TECHNIQUE: Multiple grayscale and Doppler ultrasound images of the abdomen were obtained. COMPARISON: None FINDINGS: The pancreatic head and body are normal in appearance. The pancreatic tail is not visualized. Liver has normal contour, with a smooth surface. There is increased parenchymal echogenicity and coarsened echotexture consistent with diffuse hepatic steatosis. No liver lesion identified. No intrahepatic b iliary duct dilation suspected. Portal venous flow was seen in the hepatopetal, normal direction and has normal Doppler waveform. Visualized proximal inferior vena cava is normal. The gallbladder is nor mal in appearance. There is no cholelithiasis. The common bile duct is unable to be identified with no dilated tubular structure identified at the brian hepatis. Sonographic Martinez sign was reported as negative by the piping blocker. IMPRESSION: 1. Diffuse hepatic steatosis. Reviewed, dictated and finalized at location A.
== END 2023-06-07 07:38 | disposition home or self-care (01) ==
PROVIDERS: PCP Internal Medicine; Visit Provider Internal Medicine Hematology & Oncology
DX: R79.89 Other specified abnormal findings of blood chemistry (principal); K76.9 Liver disease, unspecified
CPT/HCPCS: 76705

== ENCOUNTER 2023-08-21 16:45 | Outpatient (CLI) | payer OTHER, SELFPAY ==
[2023-08-21 17:06] LABS: Basophils Absolute Auto 0.1 K/mm3 (0.0-0.1); Basophils Percent Auto 0.6 % (0.2-1.2); Eosinophils Absolute Auto 0.4 K/mm3 (0-0.3); Eosinophils Percent Auto 4.4 % (0-4.4); Hematocrit 38.9 % (42.0-52.0); Hemoglobin 12.9 g/dL (14.0-18.0); Immature Granulocyte Absolute 0.03 K/mm3 (0.00-0.031); Immature Granulocyte Percent A 0.3 % (0-0.5); Lymphocytes Absolute Auto 1.32 K/mm3 (0.9-3.2); Lymphocytes Percent Auto 14.8 % (18.3-44.2); Mean Corpuscular HGB Conc 33.2 g/dl (32-36); Mean Corpuscular Hemoglobin 31.2 pg (26-34); Mean Corpuscular Volume 94.2 fl (80-100); Mean Platelet Volume 11.2 fl (7.4-10.4); Monocytes Absolute Auto 0.7 K/mm3 (0.1-0.6); Monocytes Percent Auto 7.4 % (2.6-8.5); Neutrophils Absolute Auto 6.4 K/mm3 (1.3-6.7); Neutrophils Percent Auto 72.5 % (45.5-73.1); Platelet Count Result 230 k/mm3 (150-375); Red Blood Count 4.13 M/mm3 (4.6-6.20); Red Cell Distribution Width 13.7 % (11.5-14.5); White Blood Count 8.9 K/mm3 (4.5-10.0)
[2023-08-21 17:15] LABS: Alanine Aminotransferase 71 U/L (6-50); Albumin Level 4.3 g/dL (3.5-5.1); Alkaline Phosphatase 50 U/L (38-126); Anion Gap 10 mmol/L (8-16); Aspartate Amino Transferase 60 U/L (17-59); Bilirubin,Total 0.5 mg/dL (0.2-1.3); Blood Urea Nitrogen 19 mg/dL (9-20); Calcium 9.1 mg/dL (8.4-10.2); Carbon Dioxide 28 mmol/L (22-30); Chloride 103 mmol/L (98-107); Estimated Glomerular Filt Rate 51; Glucose 131 mg/dL (65-110); Potassium 3.7 mmol/L (3.4-5.0); Sodium 141 mmol/L (137-145)
[2023-08-27 09:40] LABS: BCR/abl Prior Result See Report; BCR/abl1/abl1% (IS) 0.003 %
[2023-08-27 10:26] LABS: BCR/abl P210 Detected
[2023-08-27 10:27] LABS: BCR/abl P210 Chg YES
== END 2023-08-21 16:46 | disposition home or self-care (01) ==
LOC: ANHLAB 16:47
PROVIDERS: PCP Internal Medicine; Visit Provider Internal Medicine Hematology & Oncology
DX: C92.10 Chronic myeloid leukemia, BCR/ABL-positive, not having achieved remission (principal)
CPT/HCPCS: 36415; 80053; 81207; 85025

== ENCOUNTER 2023-12-11 16:23 | Outpatient (CLI) | payer OTHER, SELFPAY ==
[2023-12-11 16:55] LABS: Basophils Absolute Auto 0.1 K/mm3 (0.0-0.1); Eosinophils Absolute Auto 0.3 K/mm3 (0-0.3); Eosinophils Percent Auto 4.6 % (0-4.4); Hematocrit 39.8 % (42.0-52.0); Hemoglobin 13.6 g/dL (14.0-18.0); Immature Granulocyte Absolute 0.02 K/mm3 (0.00-0.031); Immature Granulocyte Percent A 0.3 % (0-0.5); Lymphocytes Absolute Auto 1.39 K/mm3 (0.9-3.2); Lymphocytes Percent Auto 19.8 % (18.3-44.2); Mean Corpuscular HGB Conc 34.2 g/dl (32-36); Mean Corpuscular Hemoglobin 31.4 pg (26-34); Mean Corpuscular Volume 91.9 fl (80-100); Mean Platelet Volume 11.1 fl (7.4-10.4); Monocytes Absolute Auto 0.5 K/mm3 (0.1-0.6); Monocytes Percent Auto 7.4 % (2.6-8.5); Neutrophils Absolute Auto 4.7 K/mm3 (1.3-6.7); Neutrophils Percent Auto 66.9 % (45.5-73.1); Platelet Count Result 234 k/mm3 (150-375); Red Blood Count 4.33 M/mm3 (4.6-6.20)
[2023-12-11 17:10] LABS: Alanine Aminotransferase 51 U/L (6-50); Albumin Level 4.5 g/dL (3.5-5.1); Alkaline Phosphatase 49 U/L (38-126); Anion Gap 7 mmol/L (4-12); Aspartate Amino Transferase 39 U/L (17-59); Bilirubin,Total 0.5 mg/dL (0.2-1.3); Blood Urea Nitrogen 16 mg/dL (9-20); Carbon Dioxide 30 mmol/L (22-30); Chloride 102 mmol/L (98-107); Estimated Glomerular Filt Rate 47; Glucose 111 mg/dL (65-110); Potassium 3.6 mmol/L (3.4-5.0); Sodium 139 mmol/L (137-145)
[2023-12-17 14:18] LABS: BCR/abl P190 NOT DETECTED; BCR/abl P210 DETECTED; BCR/abl Source PERIPHERAL; BCR/abl1/abl1% (IS) 0.128 (0.000)
== END 2023-12-11 16:24 | disposition home or self-care (01) ==
LOC: ANHLAB 16:25
PROVIDERS: PCP Internal Medicine; Visit Provider Internal Medicine Hematology & Oncology
DX: C92.10 Chronic myeloid leukemia, BCR/ABL-positive, not having achieved remission (principal)
CPT/HCPCS: 36415; 80053; 85025

== ENCOUNTER 2024-03-08 08:44 | Outpatient (CLI) | payer OTHER, SELFPAY ==
[2024-03-08 09:32] LABS: Alanine Aminotransferase 45 U/L (6-50); Albumin Level 4.4 g/dL (3.5-5.1); Alkaline Phosphatase 40 U/L (38-126); Anion Gap 10 mmol/L (4-12); Aspartate Amino Transferase 35 U/L (17-59); Bilirubin,Total 0.6 mg/dL (0.2-1.3); Blood Urea Nitrogen 24 mg/dL (9-20); Calcium 8.8 mg/dL (8.4-10.2); Carbon Dioxide 29 mmol/L (22-30); Chloride 101 mmol/L (98-107); Cholesterol 142 mg/dL (0-200); Estimated Glomerular Filt Rate 51; Glucose 115 mg/dL (65-110); HDL Direct 33 mg/dL; Potassium 4.1 mmol/L (3.4-5.0); Sodium 140 mmol/L (137-145); Triglycerides 112 mg/dL (<150)
[2024-03-08 09:44] LABS: LDL Cholesterol Direct 84 mg/dL
[2024-03-08 10:01] LABS: Prostate Specific Antigen 1.3 ng/mL (< OR = 4.0)
== END 2024-03-08 08:45 | disposition home or self-care (01) ==
PROVIDERS: PCP Internal Medicine; Visit Provider Clinical Nurse Specialist
DX: C95.90 Leukemia, unspecified not having achieved remission (principal); I10 Essential (primary) hypertension; Z12.5 Encounter for screening for malignant neoplasm of prostate
CPT/HCPCS: 36415; 80053; 80061; 83036; 84153; G0103

== ENCOUNTER 2024-03-25 16:58 | Outpatient (CLI) | payer OTHER, SELFPAY ==
[2024-03-25 17:44] LABS: Basophils Percent Auto 0.5 % (0.2-1.2); Eosinophils Absolute Auto 0.4 K/mm3 (0-0.3); Eosinophils Percent Auto 5.8 % (0-4.4); Hematocrit 38.5 % (42.0-52.0); Hemoglobin 13.3 g/dL (14.0-18.0); Immature Granulocyte Absolute 0.01 K/mm3 (0.00-0.031); Immature Granulocyte Percent A 0.1 % (0-0.5); Lymphocytes Absolute Auto 1.26 K/mm3 (0.9-3.2); Lymphocytes Percent Auto 16.7 % (18.3-44.2); Mean Corpuscular HGB Conc 34.5 g/dl (32-36); Mean Corpuscular Volume 92.5 fl (80-100); Mean Platelet Volume 11.3 fl (7.4-10.4); Monocytes Absolute Auto 0.5 K/mm3 (0.1-0.6); Monocytes Percent Auto 7.2 % (2.6-8.5); Neutrophils Absolute Auto 5.3 K/mm3 (1.3-6.7); Neutrophils Percent Auto 69.7 % (45.5-73.1); Platelet Count Result 230 k/mm3 (150-375); Red Blood Count 4.16 M/mm3 (4.6-6.20); Red Cell Distribution Width 13.1 % (11.5-14.5); White Blood Count 7.5 K/mm3 (4.5-10.0)
[2024-03-25 17:54] LABS: Alanine Aminotransferase 50 U/L (6-50); Albumin Level 4.4 g/dL (3.5-5.1); Alkaline Phosphatase 45 U/L (38-126); Anion Gap 11 mmol/L (4-12); Aspartate Amino Transferase 45 U/L (17-59); Bilirubin,Total 0.5 mg/dL (0.2-1.3); Blood Urea Nitrogen 18 mg/dL (9-20); Calcium 9.1 mg/dL (8.4-10.2); Carbon Dioxide 28 mmol/L (22-30); Chloride 99 mmol/L (98-107); Estimated Glomerular Filt Rate 47; Glucose 109 mg/dL (65-110); Potassium 3.6 mmol/L (3.4-5.0); Sodium 138 mmol/L (137-145)
[2024-03-31 09:24] LABS: BCR/abl P210 NOT DETECTED; BCR/abl Prior Result BLOOD; BCR/abl Source PERIPHERAL
== END 2024-03-25 16:59 | disposition home or self-care (01) ==
LOC: ANHLAB 17:00
PROVIDERS: PCP Internal Medicine; Visit Provider Internal Medicine Hematology & Oncology
DX: C92.10 Chronic myeloid leukemia, BCR/ABL-positive, not having achieved remission (principal)
CPT/HCPCS: 36415; 80053; 85025

== ENCOUNTER 2024-06-17 11:13 | Outpatient (CLI) | payer OTHER, SELFPAY ==
--- NOTE | ~2024-06-17 | US_ITS ---
EXAMINATION: US scrotum doppler DATE: 06/17/2024 11:54 INDICATION: Intermittent scrotal pain and swelling TECHNIQUE: Testicular sonogram utilizing grayscale and Doppler COMPARISON: None. FINDINGS: The right testis measures 4.3 x 2.6 x 2.9 cm. The left testis measures 4.3 x 2.0 x 3.4 cm. Symmetric normal grayscale appearance to both testes. There is normal vascular flow to both testes. 6 mm right testicular appendage. There are bilateral anechoic epididymal cysts the larger on the right measuring 1.3 cm the smaller on the left measuring 7 mm. The bilateral epididymides are otherwise normal with normal vascular flow. There is no varicocele. Small bilateral hydroceles.. IMPRESSION: 1. Small bilateral hydrocele. 2. Incidental bilateral epididymal cysts and 6 mm right testicular appendage. Reviewed, dictated and finalized at location B. WIPER
== END 2024-06-17 11:14 | disposition home or self-care (01) ==
PROVIDERS: PCP Internal Medicine; Visit Provider Nurse Practitioner
DX: N43.3 Hydrocele, unspecified (principal); N50.3 Cyst of epididymis; N44.03 Torsion of appendix testis
CPT/HCPCS: 76870; 93976

== ENCOUNTER 2024-08-07 12:03 | Outpatient (CLI) | payer OTHER, SELFPAY ==
[2024-08-07 12:49] LABS: Basophils Percent Auto 0.5 % (0.2-1.2); Eosinophils Absolute Auto 0.3 K/mm3 (0-0.3); Eosinophils Percent Auto 4.5 % (0-4.4); Hematocrit 38.1 % (42.0-52.0); Hemoglobin 13.3 g/dL (14.0-18.0); Immature Granulocyte Absolute 0.01 K/mm3 (0.00-0.031); Immature Granulocyte Percent A 0.1 % (0-0.5); Lymphocytes Absolute Auto 1.15 K/mm3 (0.9-3.2); Lymphocytes Percent Auto 15.8 % (18.3-44.2); Mean Corpuscular HGB Conc 34.9 g/dl (32-36); Mean Corpuscular Hemoglobin 32.2 pg (26-34); Mean Corpuscular Volume 92.3 fl (80-100); Mean Platelet Volume 11.1 fl (7.4-10.4); Monocytes Absolute Auto 0.5 K/mm3 (0.1-0.6); Monocytes Percent Auto 6.3 % (2.6-8.5); Neutrophils Absolute Auto 5.3 K/mm3 (1.3-6.7); Neutrophils Percent Auto 72.8 % (45.5-73.1); Platelet Count Result 219 k/mm3 (150-375); Red Blood Count 4.13 M/mm3 (4.6-6.20); White Blood Count 7.3 K/mm3 (4.5-10.0)
[2024-08-07 13:07] LABS: Alanine Aminotransferase 59 U/L (6-50); Albumin Level 4.3 g/dL (3.5-5.1); Alkaline Phosphatase 49 U/L (38-126); Anion Gap 5 mmol/L (4-12); Aspartate Amino Transferase 49 U/L (17-59); Bilirubin,Total 0.6 mg/dL (0.2-1.3); Blood Urea Nitrogen 21 mg/dL (9-20); Calcium 9.3 mg/dL (8.4-10.2); Carbon Dioxide 30 mmol/L (22-30); Chloride 105 mmol/L (98-107); Estimated Glomerular Filt Rate 43; Glucose 107 mg/dL (65-110); Potassium 3.9 mmol/L (3.4-5.0); Sodium 140 mmol/L (137-145)
[2024-08-12 14:39] LABS: BCR/abl P210 DETECTED; BCR/abl Source PERIPHERAL; BCR/abl1/abl1% (IS) 0.006 (0.000)
== END 2024-08-07 12:04 | disposition home or self-care (01) ==
LOC: ANHLAB 12:18
PROVIDERS: PCP Internal Medicine; Visit Provider Internal Medicine Hematology & Oncology
DX: C92.10 Chronic myeloid leukemia, BCR/ABL-positive, not having achieved remission (principal)
CPT/HCPCS: 36415; 80053; 85025

== ENCOUNTER 2024-12-17 17:13 | Outpatient (CLI) | payer OTHER, SELFPAY ==
--- OUTSIDE RECORDS SUMMARY | 2024-12-17 17:17 | XMS_ITS | Clinical Summary ---
Author Organization [facility] Address [address] [place] [address] Care Team Providers Care Corporate Communications Specialist Name Role Phone Mateusz Lackey DO Primary Care Provider Allergies No known active allergies Medications amLODIPine (NORVASC) 5 mg tablet TK 1 T PO D 0 9 Active ibuprofen (MOTRIN) 400 mg tablet Take 400 mg by mouth every 6 hours as needed for Pain, Mild. Active multivitamin (DAILY-OLLIE) tablet Take 1 Tablet by mouth daily. Active betamethasone dipropionate (DIPROSONE) 0.05 % Cream Apply to affected area 2 times daily. 45 Gram 3 1 Active losartan-hydroCH LOROthiazide (HYZAAR) 100-12.5 mg tablet Take 1 Tablet by mouth daily. 1 Active imatinib (GLEEVEC) 400 mg tabletIndication s:Chronic myelogenous leukemia (CMS/HCC) Take 1 Tablet (400 mg) by mouth daily with breakfast. 30 Tablet 3 5 Active imatinib (GLEEVEC) 400 mg tabletIndication s:Chronic myelogenous leukemia (CMS/HCC) Take 1 Tablet (400 mg) by mouth daily with breakfast. 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 Encounters Date Type Department Care Team Description 12/02/2024 External Device Data STL ABSTRACTION Provider, Abstract 11/25/2024 Refill [facility] Oncology and Hematology - [place] [address] [place] [address] Melvin Bryant MD Chronic myelogenous leukemia (CMS/HCC) 11/18/2024 External Device Data STL ABSTRACTION Provider, Abstract 11/07/2024 Abstract [facility] Oncology and Hematology [facility] [address] [place] [id number] Melvin Bryant MD 10/22/2024 External Device Data STL ABSTRACTION Provider, Abstract 10/11/2024 External Device Data STL ABSTRACTION Provider, Abstract 10/10/2024 External Device Data STL ABSTRACTION Provider, Abstract 09/23/2024 External Device Data STL ABSTRACTION Provider, Abstract from Last 3 Months Family History Medical History Relation Name Comments Diabetes Father Heart Disease Father Cancer Mother Lung Cancer Mother Relation Name Status Comments Father Mother Social History Tobacco Use Types Packs/Day Years Used Date Smoking Tobacco: Never Smokeless Tobacco: Never Tobacco Cessation:Counseling Given: Not Answered Alcohol Use Standard Drinks/Week Comments Yes 0 (1 standard drink = 0.6 oz pur e alcohol) Sex and Gender Information Value Date Recorded Sex Assigned at Not on file Legal Sex Male 3:54 PM CDT Gender Identity Not on file Sexual Orientation Not on file Last Filed Vital Signs Vital Sign Reading Time Taken Comments Blood Pressure 135/85 08/14/2024 3:43 PM IN HOME CAREGIVER Pulse 82 08/14/2024 3:40 PM IN HOME CAREGIVER Temperature 36.2 C (97.2 F) 08/14/2024 3:40 PM IN HOME CAREGIVER Respiratory Rate 16 08/14/2024 3:40 PM IN HOME CAREGIVER Oxygen Saturation 98% 08/14/2024 3:40 PM IN HOME CAREGIVER Inhaled Oxygen Concentration - - Weight 130.8 kg (288 lb 6.4 oz) 08/14/2024 3:40 PM IN HOME CAREGIVER Height 177.8 cm (5' 10 ) 01/10/2022 3:37 PM CDT Body Mass Index 41.38 01/10/2022 3:37 PM CDT Plan of Treatment Upcoming Encounters Date Type Department Care Team (Late st Contact Info) Description 12/23/2024 2:30 PM CDT Office Visit [facility] Oncology and Hematology [facility] [address] [place] [address] Melvin Bryant MD [address] [facility] [address] [place] [address] Health Maintenance Due Date Last Done Comments Pre-Diabetes and Diabetes Screening 1960 PNEUMOCOCCAL VACCINE 50+ YEARS (1 of 2 - PCV) 05/11/19 77 ZOSTER VACCINE (1 of 2) 1977 COLORECTAL SCREENING 2003 Colorectal Cancer Screening 2003 FIT-DNA Q 3 years 2003 FIT/FOBT Q 1 year 2003 Flex Sig/CT Colonography Q 5 years 2003 DTAP/TDAP/TD VACCINES (2 - Td or Tdap) 11/25/2017 RSV VACCINE (60+ or ) (1 - Risk 60-74 years 1-dose series) 2018 INFLUENZA VACCINE (#1) 2024 Insurance Care Teams Corporate Communications Specialist Relationship Specialty Start Date End Date Mateusz Lackey DO [address] [address] PCP - General Internal Medicine 01/28/19
--- OUTSIDE RECORDS SUMMARY | 2024-12-17 17:17 | XMS_ITS | Encounter Summary ---
Author Organization [facility] Address [address] [facility] [place] [address] Care Team Providers Care Leak Hunter Name Role Phone Unavailable Primary Care Provider Unavailabl e Encounter Details Date Type Department Care Team (Late st Contact Info) Description 03/05/2019 Lab Requisition [facility]ology [facility] [address] [place] [address] Jace Higgins MD [address] [place] [id number] Social History Tobacco Use Types Packs/Day Years Used Date Smoking Tobacco: Never Smokeless Tobacco: Never Sex and Gender Information Value Date Recorded Sex Assigned at Not on file Legal Sex Male 5:53 PM BODY BUILDER Gender Identity Not on file Sexual Orientation Not on file documented as of this encounter Plan of Treatment Not on file documented as of this encounter Procedures Procedure Name Priority Date/Time Associated Diagnosis Comments BONE MARROW BIOPSY (STL) Routine 03/04/2019 10:45 AM CDT documented in this encounter Results * BONE MARROW BIOPSY (STL) (03/04/2019 10:45 AM CDT) Case Report Bone Marrow Patholog y Report Case: [id number] Authorizing Provider: Jace Higgins MD Collected: 03/04/2019 10:45 AM Pathologist: Vilma Bella MD Received: 03/05/2019 03:22 PM Specimens: A) - Bone Marrow Core, [id number] B) - Bone Marrow Clot, [id number] C) - Blood Peripheral, [id number] D) - Bone Marrow Aspirate, [id number] 03/06/2019 6:19 AM CDT [facility] Final Diagnosis Bone marrow, aspirate, clot section, and core biopsy: - Chronic myelogenous leukemia, [id number], chronic phase. - See microscopic description. Peripheral blood smear: - Chronic myelogenous leukemia, [id number], chronic phase. - See microscopic description. 03/06/2019 6:19 AM [facility] Comment In summary, the bone marrow is markedly hypercellular with maturing myeloid and megakaryocytic hyperplasia. There is no evidence of increased blasts or significantly increased peripheral basophilia. Thus, the morphologic features combined with the provided clinical information describing a quantitative PCR showing the p210 BCR-ABL-1 gene product make the best classification for this process chronic myelogenous leukemia, [id number], chronic phase. Storage iron is noted to be decreased. Correlation with additional clinical information and complete cytogenetic/molecular analysis is required for further evaluation of disease phase. KR 03/06/2019 6:19 AM [facility] Peripheral Smear Description CBC Data: WBC - 64.9, Hgb - 11.6, MCV - 91.8, MCHC - 32.3, Platelets - 180. Manual Differential Count (100 cells): 1% blasts, 14% myelocytes/metamyeloc ytes, 71% neutrophils/bands, 9% lymphocytes, 4% monocytes, and 1% basophils. Leukocyte number: increased. Granulocyte morphology: shift to immaturity. Lymphocyte morphology: normal. Erythrocyte number: decreased. Erythrocyte morphology: normochromic/normocyt ic. Anisopoikilocytosis: mild. Polychromasia: mild. Platelet number: normal. Platelet morphology: normal. 03/06/2019 6:19 AM [facility] Bone Marrow Aspirate The aspirate smears lack spicules and are markedly hemodilute. No erythroid progenitors or megakaryocytes are seen. Given the hemodilute nature of the specimen, a differential count is not performed. Blasts are not increased on scanning. Storage iron (by special stain): negative. No spicules present. Control is appropriately reactive. Sideroblastic iron (by special stain): negative. 03/06/2019 6:19 AM [facility] Bone Marrow Core Biopsy and Clot Section Description Specimen quality: adequate. Cellularity: Hypercellular, essentially 100%. Trilineage Hematopoiesis: present. Myeloid to Erythroid ratio: increased. Myeloid maturation and localization: Myeloid precursors are markedly increased in number but show complete maturation. There is focal increased non-blast myeloid immaturity noted in a paratrabecular distribution. Erythroid maturation and localization: Too few to adequately characterize. Megakaryocyte number: Increased. Most forms are small and hypolobate. Megakaryocyte distribution: normal. Lymphoid aggregates: absent. Clot section marrow particles: present. Clot section morphology: similar to core biopsy. Clot section iron x 2 clot section blocks (by special stain): Decreased. 03/06/2019 6:19 AM [facility] Flow Cytometry Summary Concurrent flow cytometry ([id number]) shows no evidence of non-Hodgkin lymphoma or high grade myeloid neoplasm. 03/06/2019 6:19 AM [facility] Clinical History CML. 03/06/2019 6:19 AM [facility] Materials Received Received are 18 slides and 3 blocks labeled as [id number] along with the outside pathology report. [place] [address]. All materials are returned to the referring institution, along with a copy of our final report. 03/06/2019 6:19 AM [facility] Disclaimer The performance characteristics of all immunohistochemical and indirect immunofluorescence stains (if any) cited in this report were determined by the [facility]opathology [facility] of [facility]. Some of these tests were developed by our own laboratory and have not been cleared or approved by the US Food and Drug Administration. The FDA does not require this test to go through premarket FDA review. These tests are used for clinical purposes. They should not be regarded as investigational or for research. This laboratory is certified under the Clinical Laboratory Improvement Amendments (CLIA) as qualified to perform high complexity clinical laboratory testing. This case has been personally reviewed and interpreted by the attending (teaching) pathologist. 03/06/2019 6:19 AM [facility] Embedded Images 03/06/2019 6:19 AM [facility] Pathology/Cytology SPECIMEN FROM BONE MARROW OBTAINED BY ASPIRATION / Unknown 03/04/2019 10:45 AM CDT 03/05/2019 3:22 PM CDT Miscellaneous samples (specimen) BONE MARROW CLOT SPECIMEN / Unknown 03/04/2019 10:45 AM CDT 03/05/2019 3:22 PM CDT Miscellaneous samples (specimen) PERIPHERAL BLOOD / Unknown 03/04/2019 10:45 AM CDT 03/05/2019 3:22 PM CDT Miscellaneous samples (specimen) SPECIMEN FROM BONE MARROW OBTAINED BY ASPIRATION / Unknown 03/04/2019 10:45 AM CDT 03/05/2019 3:22 PM CDT Jace Higgins MD LAB - PATHOLOGY/CYTOLOGY ORDER DONTE Final Result Performing Organization Address City/State/[facility] Co de Phone Number [facility] [address] [phone] documented in this encounter Visit Diagnoses Not on filedocumented in this encounter
--- OUTSIDE RECORDS SUMMARY | 2024-12-17 17:17 | XMS_ITS | Encounter Summary ---
Author Organization [facility] Address [address] [place] [address] Care Team Providers Care Crude Oil Treater Name Role Phone Unavailable Primary Care Provider Unavailabl e Encounter Details Date Type Department Care Team (Late st Contact Info) Description 03/05/2019 Lab Requisition [facility] Care Pathology Lab [address] [place] [address] Jace Higgins MD [address] [place] [address] Chronic myeloid leukemia, BCR/ABL-positive, not having achieved remission Social History Tobacco Use Types Packs/Day Years Used Date Smoking Tobacco: Never Smokeless Tobacco: Never Sex and Gender Information Value Date Recorded Sex Assigned at Not on file 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 Sex 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:53 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 Gender Identity Not on file Sexual Orientation Not on file documented as of this encounter Plan of Treatment Not on file documented as of this encounter Procedures Procedure Name Priority Date/Time Associated Diagnosis Comments FLOW CYTOMETRY BONE MARROW Routine 03/04/2019 10:45 AM CDT Chronic myeloid leukemia, BCR/ABL-positive, not having achieved remission documented in this encounter Results * FLOW CYTOMETRY BONE MARROW (03/04/2019 10:45 AM CDT) Case Report Flow Cytometry Case: [id number] Authorizing Provider: Jace Higgins MD Collected: 03/04/2019 10:45 AM Pathologist: Vilma Bella MD Received: 03/05/2019 08:13 AM Specimen: Bone Marrow 03/05/2019 4:30 PM CDT [facility] Final Diagnosis Bone marrow, flow cytometric immunophenotypic analysis: - No evidence of non-Hodgkin lymphoma or high grade myeloid neoplasm. - See interpretation. 03/05/2019 4:30 PM [facility] Flow Cytometry Interpretation The bone marrow aspirate specimen has a viability of 82%. The majority of events are in the granulocyte gate. Within the lymphocyte region, there is no monoclonal B-cell population identified (kappa:lambda ratio is 1.7:1). There is no expanded T-cell population seen. Within the dim CD45 region, there is no increase in blasts (0.1% of all events). A bone marrow aspirate smear prepared from the flow cytometry specimen is reviewed for design quality engineer purposes. In summary, the bone marrow specimen shows no evidence of a non-Hodgkin lymphoma or high grade myeloid neoplasm. Correlation with additional clinical information and the concurrent bone marrow biopsy specimen ([id number]) is required. KR 03/05/2019 4:30 PM [facility] Flow Cytometry Results Differential Result Comment Flow Cell Count /uL [id number] Total Viability % 82.0 Lymphocytes % 4 Dim CD45 Region % 4 Monocytes % 2 Granulocytes % 89 03/05/2019 4:30 PM [facility] Reason for test Chronic myeloid leukemia, BCR/ABL-positive, not having achieved remission 205.10 03/05/2019 4:30 PM [facility] Client Specimen ID # [id number] 03/05/2019 4:30 PM [facility] Number of markers 19 were performed. A Flow CD10 A Flow CD13 A Flow CD20 A Flow CD2 A Flow CD14 A Flow CD117 A Flow CD11b A Flow CD11c A Flow CD5 A Flow CD19 A Flow CD33 A Flow CD34 A Flow CD45 A Flow CD7 A Flow CD56 A Flow CD64 A Hermleigh+CD19+ A Lambda+CD19+ A Flow HLA-DR 03/05/2019 4:30 PM [facility] Disclaimer Test performed at [facility], [address] [place] [address], [id number]. *The established laboratory minimum viability is 70%. Values below the minimum may result in the failure to find an abnormal population of cells. This test was developed and its performance characteristics determined by the Flow Cytometry Laboratory. It has not been cleared by the [place] Food and Drug Administration (FDA). The FDA has determined that such clearance or approval is not necessary. This test is used for clinical purposes. It should not be regarded as investigational or for research. This laboratory is regulated under the Clinical Laboratory Improvement Amendments of 1998 (CLIA) as a qualified to perform high complexity clinical testing. 03/05/2019 4:30 PM CDT [facility] Embedded Images 4:30 PM CDT [facility] Pathology/Cytolo gy BONE MARROW SPECIMEN / Unknown 03/04/2019 10:45 AM CDT 03/05/2019 8:13 AM CDT Jace Higgins MD LAB - PATHOLOGY/CYTOLOGY ORDER DONTE Final Result [facility] [address] [phone] documented in this encounter Visit Diagnoses Diagnosis Chronic myeloid leukemia, BCR/ABL-positive, not having achieved remission (HCC) Chronic myeloid leukemia, without mention of having achieved remission documented in this encounter
--- OUTSIDE RECORDS SUMMARY | 2024-12-17 17:17 | XMS_ITS | Clinical Summary ---
Author Organization [facility] Address [address] [place] [address] Care Team Providers Care Paper Products Inspector Name Role Phone Unavailable Primary Care Provider Unavailabl e Source Comments [facility],non-owned Affiliates and Associated Physician Practices is amultiple site organization consisting of ambulatory clinics and hospital sitesin [place], [place], [place] and [place]. This disclosure is being madepursuant to the Care Everywhere program and may not contain all information available regarding this patient. Last updated 18.[facility] Allergies No known active allergies Medications * Be aware that medications may not be up to date on this document. Alwaysverify current medications with the patient. AmLODIPine Besylate (NORVASC PO) Active LOSARTAN POTASSIUM-HCTZ PO Active benzonatate (TESSALON) 200 MG capsuleIndicati ons:Cough Take 1 capsule by mouth 3 times daily as needed for Cough 30 capsule 08/04/2018 Active fluticasone propionate (FLONASE) 50 MCG/ACT nasal sprayIndication s:Acute maxillary sinusitis, recurrence not specified [place] 2 sprays into each nostril once daily 1 bottles 08/04/2018 Active Social History Tobacco Use Types Packs/Day Years Used Date Smoking Tobacco: Never Smokeless Tobacco: Never Sex and Gender Information Value Date Recorded Sex Assigned at Not on file Legal Sex Male 5:53 PM 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 FRAMER Gender Identity Not on file Sexual Orientation Not on file Last Filed Vital Signs Vital Sign Reading Time Taken Comments Blood Pressure 120/88 08/04/2018 3:54 PM CURTAIN FRAMER Pulse 100 08/04/2018 3:54 PM CURTAIN FRAMER Temperature 37.6 C (99.7 F) 08/04/2018 3:54 PM CURTAIN FRAMER Respiratory Rate 16 08/04/2018 3:54 PM CURTAIN FRAMER Oxygen Saturation 97% 08/04/2018 3:54 PM CURTAIN FRAMER Inhaled Oxygen Concentration - - Weight 121.6 kg (268 lb) 08/04/2018 3:54 PM CURTAIN FRAMER Height 177.8 cm (5' 10 ) 08/04/2018 3:54 PM CURTAIN FRAMER Body Mass Index 38.45 08/04/2018 3:54 PM CURTAIN FRAMER Plan of Treatment Health Maintenance Due Date Last Done Comments COLOGUARD (AGES 45-75) - COL ON CA SCREENING 1960 COLON MONITORING 1960 COLONOSCOPY - COLON CA SCREENING 1960 CT COLONOGRAPHY - COLON CA SCREENING 1960 Colorectal Cancer Screening 1960 FIT - COLON CA SCREENING 1960 FLEX SIG - COLON CA SCREENING 1960 LIPID TESTING 1960 HEPATITIS C SCREENING 05/06/1976 DTAP/TDAP/TD VACCINES (1 - Tdap) 1977 PNEUMOCOCCAL VACCINE 50+ (1 of 1 - PCV) 2008 ZOSTER VACCINE (1 of 2) 2008 SCREENING FOR DIABETES 08/04/2018 COVID-19 VACCINE (1 - 2023-2 5 season) 2024 DEPRESSION SCREENING 08/06/2024 INFLUENZA VACCINE (Season Ended) 2025 Respiratory Syncytial Virus (RSV) Vaccine Pt: or over 60 yrs (1 - 1-dose 75+ series) 2033 HEPATITIS B VACCINE Aged Out No longe r eligible based on patient's age to complete this topic HIB VACCINE Aged Out No longer eligi ble based on patient's age to complete this topic HPV VACCINE Aged Out No longer eligi ble based on patient's age to complete this topic MENINGOCOCCAL (Group B) VACC INE SHARED DECISION-MAKING Aged Out No longer eligibl e based on patient's age to complete this topic MENINGOCOCCAL GROUPS A/C/Y/W VACCINE Aged Out No longer eligible b ased on patient's age to [place] [address] AETNA AETNA
[2024-12-17 17:30] LABS: BCR/abl P190 Chg YES; BCR/abl P210 Chg YES
[2024-12-17 17:31] LABS: Basophils Absolute Auto 0.1 K/mm3 (0.0-0.1); Basophils Percent Auto 0.7 % (0.2-1.2); Eosinophils Absolute Auto 0.5 K/mm3 (0-0.3); Eosinophils Percent Auto 7.1 % (0-4.4); Hemoglobin 12.5 g/dL (14.0-18.0); Immature Granulocyte Absolute 0.02 K/mm3 (0.00-0.031); Immature Granulocyte Percent A 0.3 % (0-0.5); Lymphocytes Absolute Auto 1.28 K/mm3 (0.9-3.2); Lymphocytes Percent Auto 18.8 % (18.3-44.2); Mean Corpuscular HGB Conc 32.9 g/dl (32-36); Mean Corpuscular Hemoglobin 31.3 pg (26-34); Mean Platelet Volume 10.8 fl (7.4-10.4); Monocytes Absolute Auto 0.4 K/mm3 (0.1-0.6); Monocytes Percent Auto 6.5 % (2.6-8.5); Neutrophils Absolute Auto 4.5 K/mm3 (1.3-6.7); Neutrophils Percent Auto 66.6 % (45.5-73.1); Platelet Count Result 216 k/mm3 (150-375); Red Cell Distribution Width 13.2 % (11.5-14.5); White Blood Count 6.8 K/mm3 (4.5-10.0)
[2024-12-17 17:45] LABS: Alanine Aminotransferase 61 U/L (6-50); Albumin Level 4.5 g/dL (3.5-5.1); Alkaline Phosphatase 43 U/L (38-126); Anion Gap 10 mmol/L (4-12); Aspartate Amino Transferase 51 U/L (17-59); Bilirubin,Total 0.5 mg/dL (0.2-1.3); Blood Urea Nitrogen 22 mg/dL (9-20); Calcium 9.1 mg/dL (8.4-10.2); Carbon Dioxide 28 mmol/L (22-30); Chloride 104 mmol/L (98-107); Estimated Glomerular Filt Rate 57; Glucose 124 mg/dL (65-110); Potassium 4.1 mmol/L (3.4-5.0); Sodium 142 mmol/L (137-145)
[2024-12-20 20:34] LABS: BCR/abl P210 DETECTED; BCR/abl Prior Result NG; BCR/abl Source LAVENDER; BCR/abl1/abl1% (IS) 0.008 (0.000)
== END 2024-12-17 17:14 | disposition home or self-care (01) ==
LOC: ANHLAB 17:16
PROVIDERS: PCP Internal Medicine; Visit Provider Internal Medicine Hematology & Oncology
DX: C92.10 Chronic myeloid leukemia, BCR/ABL-positive, not having achieved remission (principal)
CPT/HCPCS: 36415; 80053; 81206; 81207; 85025

== ENCOUNTER 2025-03-14 08:45 | Outpatient (CLI) | payer OTHER, SELFPAY ==
--- OUTSIDE RECORDS SUMMARY | 2025-03-14 08:47 | XMS_ITS | Clinical Summary ---
Author Organization [facility] Address [address] [place] [address] Care Team Providers Care Food Service Aide Name Role Phone Mateusz Lackey DO Primary [...] times daily. 45 Gram 3 1 Active losartan-hydroCHL OROthiazide (HYZAAR) 100-12.5 mg tablet Take 1 Tablet by mouth daily. 1 Active imatinib (GLEEVEC) 400 mg tabletIndications :Chronic myelogenous leukemia (CMS/HCC) Take 1 Tablet (400 mg) by mouth daily with breakfast. 30 Tablet 3 5 Active Active Problems Problem Noted Date Diagnosed Date Chronic myelogenous leukemia 03/20/2019 Encounters Date Type Department Care Team Description 03/11/2025 External Device Data STL ABSTRACTION Provider, Abstract 02/18/2025 External Device Data STL ABSTRACTION Provider, Abstract 02/18/2025 External Device Data ST[facility] ABSTRACTION Provider, Abstract 02/18/2025 External Device Data ST[facility] ABSTRACTION Provider, Abstract 02/17/2025 External Device Data ST[facility] ABSTRACTION Provider, Abstract 01/27/2025 External Device Data STL ABSTRACTION Provider, Abstract 01/20/2025 External Device Data STL ABSTRACTION Provider, Abstract 12/30/2024 External Device Data STL ABSTRACTION Provider, Abstract 12/25/2024 External Device Data STL ABSTRACTION Provider, Abstract 12/23/2024 2:30 PM CDT Office Visit [facility] Oncology and Hematology [facility] [address] [place] [phone] Melvin Bryant MD Chronic myelogenous leukemia (CMS/HCC) (Primary Dx) 12/23/2024 Orders Only [facility] Oncology and Hematology [facility] [address] [place] [phone] Melvin Bryant MD from Last 3 Months Family History Medical [...] Sign Reading Time Taken Comments Blood Pressure 132/81 12/23/2024 2:33 PM CDT Pulse 76 12/23/2024 2:33 PM CDT Temperature 36.7 C (98 F) 12/23/2024 2:33 PM CDT Respiratory Rate 15 12/23/2024 2:33 PM CDT Oxygen Saturation 96% 12/23/2024 2:33 PM CDT Inhaled Oxygen Concentration - - Weight 131.7 kg (290 lb 6.4 oz) 12/23/2024 2:33 PM CDT Height 177.8 cm (5' 10) 01/10/2022 3:37 PM CDT Body Mass Index 41.67 01/10/2022 3:37 PM CDT Plan of Treatment Upcoming Encounters Date Type Department Care Team (Late st Contact Info) Description 05/26/2025 3:30 PM CDT Office Visit [facility] Oncology and Hematology [facility] [address] [place] [phone] Melvin Bryant MD [address] [place] [address] Health Maintenance Due Date Last Done Comments Pre-Diabetes and Diabetes Screening 1960 PNEUMOCOCCAL VACCINE 50+ YEA RS (1 of 2 - PCV) 1977 ZOSTER VACCINE (1 of 2) 1977 COLORECTAL SCREENING 2003 Colorectal Cancer Screening 2003 FIT-DNA Q 3 years 2003 FIT/FOBT Q 1 year 2003 Flex Sig/CT Colonography Q 5 years 2003 DTAP/TDAP/TD VACCINES (2 - Td or Tdap) 11/25/2017 RSV VACCINE (60+ or ) (1 - Risk 60-74 years 1-dose series) 2018 INFLUENZA VACCINE (#1) 2025 05/16/2018, 2016 Procedures Procedure Name Priority Date/Time Associated Diagnosis Comments BCR/ABL DIAGNOSTIC ASSAY W/REFLEX Routine 12/17/2024 9:13 AM CDT from Last 3 Months Results * BCR/ABL DIAGNOSTIC ASSAY W/REFLEX (12/17/2024 9:13 AM CDT) Melvin Bryant MD BODY FLUIDS AND STOOLS COM Erinn l Result from Last 3 Months Insurance [facility] [id number] [facility] [id number] Care Teams Food Service Aide Relationship Specialty Start Date End Date Mateusz Lackey DO [address] [place] [address] PCP - General Internal Medicine 01/28/19
--- OUTSIDE RECORDS SUMMARY | 2025-03-14 08:47 | XMS_ITS | Clinical Summary ---
Author Organization [facility] Address [address] [place] [address] Care Team Providers Care Quality Assurance Specialist Name Role Phone Unavailable Primary Care Provider Unavailabl e Source Comments [facility],non-owned Affiliates and Associated Physician Practices is amultiple site organization consisting of ambulatory clinics and hospital sitesin [place], [place], [place] and [place]. This disclosure is being madepursuant to the Care Everywhere program and may not contain all information available regarding this patient. 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 Gender Identity Not on file Sexual Orientation Not on file Last Filed Vital Signs Vital Sign Reading Time Taken Comments Blood Pressure 120/88 08/04/2018 3:54 PM SCHEDULING MANAGER Pulse 100 08/04/2018 3:54 PM SCHEDULING MANAGER Temperature 37.6 C (99.7 F) 08/04/2018 3:54 PM SCHEDULING MANAGER Respiratory Rate 16 08/04/2018 3:54 PM SCHEDULING MANAGER Oxygen Saturation 97% 08/04/2018 3:54 PM SCHEDULING MANAGER Inhaled Oxygen Concentration - - Weight 121.6 kg (268 lb) 08/04/2018 3:54 PM SCHEDULING MANAGER Height 177.8 cm (5' 10) 08/04/2018 3:54 PM SCHEDULING MANAGER Body Mass Index 38.45 08/04/2018 3:54 PM SCHEDULING MANAGER Plan of Treatment Health Maintenance Due Date [...] season) 2024 DEPRESSION SCREENING 08/06/2024 INFLUENZA VACCINE (#1) 2025 Respiratory Syncytial Virus (RSV) Vaccine Pt: [...] patient's age to [place] [address] AETNA AETNA
--- OUTSIDE RECORDS SUMMARY | 2025-03-14 08:47 | XMS_ITS | Encounter Summary ---
Author Organization [facility] Address [address] [place] [address] Care Team Providers Care Wellness Program Administrator Name Role Phone Unavailable Primary Care Provider Unavailabl e Encounter Details Date Type Department Care Team (Late st Contact Info) Description 03/05/2019 Lab Requisition [facility] Care Pathology Lab [address] [place] [address] Jace Higgins MD [address] [place] [address] Social History Tobacco Use Types Packs/Day Years Used Date Smoking Tobacco: Never Smokeless Tobacco: Never Sex and Gender Information Value Date Recorded Sex Assigned at Not on file 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 - See microscopic description. Peripheral blood smear: - Chronic myelogenous leukemia, [id number], chronic phase. - See microscopic description. 03/06/2019 6:19 AM [facility] at [address] [facility] AP Comment In summary, the bone marrow is markedly hypercellular with maturing myeloid and megakaryocytic hyperplasia. There is no evidence of increased blasts or significantly increased peripheral basophilia. Thus, the morphologic features combined with the provided clinical information describing a quantitative PCR showing the p210 BCR-ABL-1 gene product make the best classification for this process chronic myelogenous leukemia, [id number], chronic phase. Storage iron is noted to be decreased. Correlation with additional clinical information and complete cytogenetic/molecular analysis is required for further evaluation of disease phase. KR 03/06/2019 6:19 AM [facility] Peripheral Smear Description CBC Data: [...] normal. Platelet morphology: normal. 03/06/2019 6:19 AM [facility] Bone Marrow Aspirate The aspirate smears lack spicules and are markedly hemodilute. No erythroid progenitors or megakaryocytes are seen. Given the hemodilute nature of the specimen, a differential count is not performed. Blasts are not increased on scanning. Storage iron (by special stain): negative. No spicules present. Control is appropriately reactive. Sideroblastic iron (by special stain): negative. 03/06/2019 6:19 AM [facility] Bone Marrow Core Biopsy and [...] (by special stain): Decreased. 03/06/2019 6:19 AM [facility] Flow Cytometry Summary Concurrent flow cytometry ([id number]) shows no evidence of non-Hodgkin lymphoma or high grade myeloid neoplasm. 03/06/2019 6:19 AM [facility] Clinical History CML. 03/06/2019 6:19 AM [facility] Materials Received Received are 18 slides and 3 blocks labeled as [id number] along with the outside pathology report. [place] [address]. All materials are returned to the referring institution, along with a copy of our final report. 03/06/2019 6:19 AM [facility] Disclaimer The performance characteristics of all immunohistochemical and indirect immunofluorescence stains (if any) cited in this report were determined by the Histopathology Laboratory of [facility]. Some of these tests were developed by [...] the attending (teaching) pathologist. 03/06/2019 6:19 AM [facility] Embedded Images 03/06/2019 6:19 AM [facility] Pathology/Cytology SPECIMEN FROM BONE MARROW [...] ORDER DONTE Final Result Performing Organization Address City/State/[facility] Co de Phone Number [facility] [address] [phone] documented in this encounter Visit Diagnoses Not on filedocumented in this encounter
--- OUTSIDE RECORDS SUMMARY | 2025-03-14 08:47 | XMS_ITS | Encounter Summary ---
Author Organization [facility] Address [address] [place] [address] Care Team Providers Care Batch Analyst Name Role Phone Unavailable Primary Care Provider Unavailabl e Encounter Details Date Type Department Care Team (Late st Contact Info) Description 03/05/2019 Lab Requisition [facility] Care Pathology Lab [address] [place] [address] Jace Higgins MD [address] [place] [address] Chronic myeloid leukemia, BCR/ABL-positive, not having achieved remission Social History Tobacco Use Types Packs/Day Years Used Date Smoking Tobacco: Never Smokeless Tobacco: Never Sex and Gender Information Value Date Recorded Sex Assigned at Not on file 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 - See interpretation. 03/05/2019 4:30 PM [facility] at 1630 CDT Flow Cytometry Interpretation The bone marrow aspirate [...] the flow cytometry specimen is reviewed for quality review specialist purposes. In summary, the bone marrow specimen shows no evidence of a non-Hodgkin lymphoma or high grade myeloid neoplasm. Correlation with additional clinical information and the concurrent bone marrow biopsy specimen ([id number]) is required. KR 03/05/2019 4:30 PM [facility] Flow Cytometry Results Differential Result Comment Flow Cell Count /uL [id number] Total Viability % 82.0 Lymphocytes % 4 Dim CD45 Region % 4 Monocytes % 2 Granulocytes % 89 03/05/2019 4:30 PM [facility] Reason for test Chronic myeloid leukemia, BCR/ABL-positive, not having achieved remission 205.10 03/05/2019 4:30 PM [facility] Client Specimen ID # [id number] 03/05/2019 4:30 PM [facility] Number of markers 19 were performed. A Flow CD10 A Flow CD13 A Flow CD20 A Flow CD2 A Flow CD14 A Flow CD117 A Flow CD11b A Flow CD11c A Flow CD5 A Flow CD19 A Flow CD33 A Flow CD34 A Flow CD45 A Flow CD7 A Flow CD56 A Flow CD64 A Wilmar+CD19+ A Lambda+CD19+ A Flow HLA-DR 03/05/2019 4:30 PM [facility] Disclaimer Test performed at [facility], [address] [place] [address], [address]. *The established laboratory minimum viability is 70%. [...] complexity clinical testing. 03/05/2019 4:30 PM CDT [facility] Embedded Images 4:30 PM CDT [facility] Pathology/Cytolo gy BONE MARROW SPECIMEN / Unknown 03/04/2019 10:45 AM CDT 03/05/2019 8:13 AM CDT Jace Higgins MD LAB - PATHOLOGY/CYTOLOGY ORDER DONTE Final Result [facility] [address] [phone] documented in this encounter Visit Diagnoses Diagnosis Chronic myeloid leukemia, BCR/ABL-positive, not having achieved remission (HCC) Chronic myeloid leukemia, without mention of having achieved remission documented in this encounter
[2025-03-14 09:05] LABS: Hematocrit 36.9 % (42.0-52.0); Hemoglobin 12.4 g/dL (14.0-18.0); Immature Granulocyte Percent A 0.3 % (0-0.5); Lymphocytes Absolute Auto 1.01 K/mm3 (0.9-3.2); Mean Corpuscular HGB Conc 33.6 g/dl (32-36); Mean Corpuscular Hemoglobin 30.9 pg (26-34); Mean Corpuscular Volume 92.0 fl (80-100); Nucleated Red Blood Cells Absolute Auto 0.000 K/mm3 (0.0-0.012); Nucleated Red Blood Cells Perc 0.0 % (0.0-0.2); Platelet Count Result 212 k/mm3 (150-375); Red Blood Count 4.01 M/mm3 (4.6-6.20); White Blood Count 6.8 K/mm3 (4.5-10.0)
[2025-03-14 09:16] LABS: Hemoglobin A1C 6.2 % (<5.7)
[2025-03-14 09:26] LABS: Alanine Aminotransferase 47 U/L (6-50); Albumin Level 4.1 g/dL (3.5-5.1); Alkaline Phosphatase 46 U/L (38-126); Anion Gap 8 mmol/L (4-12); Aspartate Amino Transferase 44 U/L (17-59); Bilirubin,Total 0.6 mg/dL (0.2-1.3); Blood Urea Nitrogen 21 mg/dL (9-20); Calcium 9.0 mg/dL (8.4-10.2); Carbon Dioxide 27 mmol/L (22-30); Chloride 103 mmol/L (98-107); Cholesterol 138 mg/dL (0-200); Estimated Glomerular Filt Rate 45; Glucose 117 mg/dL (65-110); HDL Direct 30 mg/dL; Potassium 4.2 mmol/L (3.4-5.0); Sodium 138 mmol/L (137-145); Total Protein 7.3 g/dL (6.3-8.2); Triglycerides 125 mg/dL (<150)
[2025-03-14 10:02] LABS: Prostate Specific Antigen 1.1 ng/mL (< OR = 4.0); Thyroid Stimulating Hormone 1.760 uIU/mL (0.465-4.680)
[2025-03-14 13:55] LABS: MALB Creatinine Ratio 39.0 mg/g (0-30)
== END 2025-03-14 08:46 | disposition home or self-care (01) ==
LOC: ANHLAB 08:46
PROVIDERS: PCP Internal Medicine; Visit Provider Clinical Nurse Specialist
DX: Z12.5 Encounter for screening for malignant neoplasm of prostate (principal); I10 Essential (primary) hypertension; C95.91 Leukemia, unspecified, in remission; R06.02 Shortness of breath; R51.9 Headache, unspecified
CPT/HCPCS: 36415; 80053; 80061; 82043; 82172; 83036; 84153; 84443; 85025; G0103

== ENCOUNTER 2025-04-16 07:18 | Outpatient (CLI) | payer OTHER, SELFPAY ==
--- NOTE | ~2025-04-16 | NM_ITS ---
EXAMINATION: NM larry stress w perfusion DATE: 04/16/2025 10:42 INDICATION: Shortness of breath TECHNIQUE: Rest images were obtained following intravenous administration of 10.7 mCi Tc99m tetrofosmin (Myoview). The patient was infused intravenously with Lexiscan (Regadenoson). Then, 35.6 mCi Tc99m tetrofosmin (Myoview) was administered intravenously, and stress images were obtained. Data was abbie nstructed into short axis and horizontal and vertical long axis SPECT images. Gated SPECT images were also obtained. COMPARISON: None. FINDINGS: There is no definite reversible or fixed perfusion abnormality to suggest ischemia or infarction. There is normal left ventricular chamber size, wall motion and ejection fraction. Left ventricular ejection fraction measures 63%. IMPRESSION: 1. Normal myocardial perfusion at rest and during stress. 2. Left ventricular ejection fraction measuring 63%. Reviewed, dictated and finalized at location A.
--- NOTE | 2025-04-16 07:46 | EST_ITS ---
Patient Info Name: Carlo Merino Age: 64 years : 1960 Gender: Male Ht: 70 in Wt: 285 lbs BSA: 2.58 m2 Exam Date: 04/16/2025 7:46 AM Patient Status: O Admit Date: 04/16/2025 Exam Type: CA stress larry w NM A regadenoson stress test was performed. Staff Referring Physician: Michaela NAILS Attending Provider: Michaela NAILS Exercise Technologist: Jen Contreras Exercise Physician: Erlin Pan DO Summary 1. 1. Negative lexiscan stress test for ischemic ST changes by ECG criteria. 2. 2. Stable hemodynamics throughout the test. 3. 3. Nuclear scan to follow and will be reported separately. Please correlate with it. 4. 4. Patient informed of the above results. Protocol: Lexiscan Stress ECG Details Stage: REST Duration (min): 0 min : 56 sec HR (bpm): 70 SBP (mmHg): 135 DBP (mmHg): 83 Stage: REST Duration (min): 5 min : 45 sec HR (bpm): 69 SBP (mmHg): 135 DBP (mmHg): 83 Stage: STAGE 1 Duration (min): 0 min : 59 sec HR (bpm): 90 SBP (mmHg): 142 DBP (mmHg): 72 Stage: RECOVERY Duration (min): 1 min : 0 sec HR (bpm): 90 SBP (mmHg): 142 DBP (mmHg): 72 Stage: RECOVERY Duration (min): 2 min : 0 sec HR (bpm): 88 SBP (mmHg): 142 DBP (mmHg): 72 Stage: RECOVERY Duration (min): 3 min : 0 sec HR (bpm): 82 SBP (mmHg): 127 DBP (mmHg): 73 Stage: RECOVERY Duration (min): 3 min : 3 sec HR (bpm): 82 SBP (mmHg): 127 DBP (mmHg): 73 Rest HR: 69 bpm Peak HR: 92 bpm Rest Sys BP: 135 mmHg Peak Sys BP: 142 mmHg Max Pred HR: 154 bpm % Max Pred HR: 60 % Target HR: 131 bpm Max RPP: 13,064 bpm*mmHg Termination Reason: Completed protocol Cardiac Symptoms: Shortness of breath Total Time: 1 min : 0 sec Rest Tapia BP: 83 mmHg Peak Tapia BP: 72 mmHg Total Dose: 0.4 mg Resting ECG Sinus rhythm. Stress ECG No ST changes. Arrhythmias None. Report Signatures
--- NOTE | 2025-04-16 07:46 | ECHO_ITS ---
Patient Info Name: Carlo Merino Age: 64 years : 1960 Gender: Male Ht: 70 in Wt: 285 lbs BSA: 2.58 m2 HR: 66 bpm BP: 135 / 93 mmHg Technical Quality: Good Exam Date: 04/16/2025 8:20 AM Patient Status: O Admit Date: 04/16/2025 Exam Type: CA echo dop color flow w con Complete two-dimensional, color flow and Doppler transthoracic echocardiogram is performed with contrast to opacify the left ventricle and to improve the deliniation of the left ventricle endocardial borders. Staff Referring Physician: Michaela NAILS Senior Qc Technician: Alessandra Karimi Attending Provider: Michaela NAILS Contrast/Agitated Saline Contrast/Ag. Saline: Definity Amount: 2.00 ml Administered By: Alessandra Karimi Summary 1. Definity contrast administered improved wall motion interpretation. 2. Left ventricular chamber dimension is normal. 3. Left ventricular systolic function is normal, estimated at 60-65. 4. The left ventricular diastolic function is grade II diastolic dysfunction. 5. E/e' 10 is mildly elevated. 6. There is moderate aortic valve sclerosis. 7. There is mild aortic valve regurgitation. Left Ventricle E/e' 10 is mildly elevated. Left ventricular chamber dimension is normal. Left ventricular systolic function is normal, estimated at 60-65. The left ventricular diastolic function is grade II diastolic dysfunction. Definity contrast administered improved wall motion interpretation. Right Ventricle Right ventricular chamber dimension is normal. Right ventricular systolic function is normal and with normal TAPSE 1.8 cm. Left Atria Left atrial chamber dimension is normal. Right Atria Right atrial chamber dimension is normal. Aortic Valve The aortic valve is trileaflet. There is moderate aortic valve sclerosis. There is no aortic valve stenosis. There is mild aortic valve regurgitation. Pulmonic Valve There is no pulmonic regurgitation. Mitral Valve There is no mitral valve stenosis. There is no mitral valve regurgitation. Tricuspid Valve There is no tricuspid valve regurgitation. Pericardium/Pleural There is no pericardial effusion. Inferior Vena Cava Normal inferior vena cava with >50% collapse upon inspiration consistent with normal right atrial pressure, 5 mmHg. Aorta The aortic root size at the sinus of Valsalva is normal. Left Ventricular Outflow Tract Name Value Normal LVOT 2D LVOT Diameter 2.0 cm LVOT Doppler LVOT Peak Velocity 109 cm/s LVOT Peak Gradient 5 mmHg LVOT Mean Gradient 3 mmHg LVOT VTI 27 cm LVOT Stroke Volume 86 ml LVOT CO 5.7 l/min LVOT CI 2.2 l/min/m2 Pulmonic Valve Name Value Normal RVOT Doppler RVOT Peak Velocity 85 cm/s RVOT Peak Gradient 3 mmHg PV Doppler PV Peak Velocity 94 cm/s PV Peak Gradient 4 mmHg Mitral Valve Name Value Normal MV Diastolic Function MV E Peak Velocity 87 cm/s MV A Peak Velocity 86 cm/s MV E/A 1.0 MV Decel Time (PW) 193 ms MV Annular TDI MV E/e' (Septal) 12.1 MV E/e' (Lateral) 9.8 MV E/e' (Average) 11.0 Tricuspid Valve Name Value Normal Estimated PAP/RSVP RA Pressure 5 mmHg <=5 Aortic Valve Name Value Normal AV Doppler AV Peak Velocity 132 cm/s AV Peak Gradient 7 mmHg AV Area (Cont Eq Andrew) 2.6 cm2 AV DI (Andrew) 0.83 AV Regurgitation 2D LVOT Area 3.2 cm2 Ventricles Name Value Normal LV Dimensions 2D/MM IVS Diastolic Thickness (2D) 1.1 cm 0.6-1.0 LVID Diastole (2D) 4.0 cm 4.2-5.8 LVIW Diastolic Thickness (2D) 1.2 cm 0.6-1.0 LVID Systole (2D) 2.5 cm 2.5-4.0 LVOT Diameter 2.0 cm LV Mass (2D Cubed) 163.26 g 88.00-224.00 LV Mass Index (2D Cubed) 63 g/m2 49-115 Relative Wall Thickness (2D) 0.61 <=0.42 LV Fractional Shortening/Ejection Fraction 2D/MM LV Fractional Shortening (2D) 38 % 25-43 LV EF (2D Teichholz) 68 % LV Diastolic Volume (4C MOD) 200 ml LV EF (4C MOD) 65 % LV Diastolic Volume (2C MOD) 140 ml LV EF (2C MOD) 63 % LV Diastolic Volume (BP MOD) 179 ml 62-150 LV Diastolic Volume Index (BP MOD) 69 ml/m2 34-74 LV Systolic Volume (BP MOD) 61 ml 21-61 LV Systolic Volume Index (BP MOD) 24 ml/m2 11-31 LV EF (BP MOD) 66 % 52-72 LV Diastolic Length (4C) 9.8 cm LV Systolic Length (4C) 7.8 cm LV Stroke Volume (4C MOD) 130 ml Atria Name Value Normal LA Dimensions LA Volume (4C A-L) 46 ml LA Volume (BP A-L) 50 ml RA Dimensions RA Systolic Major [place] Length (4C) 6.8 cm 2.1-2.7 RA Area (4C) 18.8 cm2 <=18.0 Report Signatures
[2025-04-16] MEDS: PERFLUTREN LIPID MICROSPHERES 1.5 ML VIAL DILUTED TO 10 ML TOTAL VOLUME IV PUSH (08:59)
--- NOTE | 2025-04-16 08:59 | IVDEFINITY ---
Prior to administration of IV Definity the patient was educated on the risks and benefits of the imaging enhancing agent including potential adverse side effects. The patient verbalized understanding. Allergies were verified. No exclusion criteria were identified and at least one of the following inclusion criteria were met: 1) physician request, 2) patient technically difficult to image (per the [place] [employer] Echocardiography guidelines of two or more segments not discernable within the apical view), or 3) questionable left ventricular function. ?
== END 2025-04-16 07:19 | disposition home or self-care (01) ==
PROVIDERS: PCP Internal Medicine; Visit Provider Clinical Nurse Specialist
DX: I51.89 Other ill-defined heart diseases (principal)
CPT/HCPCS: 78452; 93017; A9502; C8929; J2785; Q9957

== ENCOUNTER 2025-05-19 12:47 | Outpatient (CLI) | payer OTHER, SELFPAY ==
[2025-05-19 13:47] LABS: Hematocrit 38.0 % (42.0-52.0); Hemoglobin 12.8 g/dL (14.0-18.0); Immature Granulocyte Percent A 0.1 % (0-0.5); Lymphocytes Absolute Auto 1.05 K/mm3 (0.9-3.2); Mean Corpuscular HGB Conc 33.7 g/dl (32-36); Mean Corpuscular Hemoglobin 31.1 pg (26-34); Mean Corpuscular Volume 92.2 fl (80-100); Nucleated Red Blood Cells Absolute Auto 0.000 K/mm3 (0.0-0.012); Nucleated Red Blood Cells Perc 0.0 % (0.0-0.2); Platelet Count Result 222 k/mm3 (150-375); Red Blood Count 4.12 M/mm3 (4.6-6.20); White Blood Count 7.3 K/mm3 (4.5-10.0)
[2025-05-19 14:08] LABS: Alanine Aminotransferase 46 U/L (6-50); Albumin Level 4.3 g/dL (3.5-5.1); Alkaline Phosphatase 50 U/L (38-126); Anion Gap 9 mmol/L (4-12); Aspartate Amino Transferase 42 U/L (17-59); Bilirubin,Total 0.5 mg/dL (0.2-1.3); Blood Urea Nitrogen 21 mg/dL (9-20); Calcium 9.0 mg/dL (8.4-10.2); Carbon Dioxide 28 mmol/L (22-30); Chloride 105 mmol/L (98-107); Estimated Glomerular Filt Rate 46; Glucose 95 mg/dL (65-110); Potassium 4.1 mmol/L (3.4-5.0); Sodium 142 mmol/L (137-145); Total Protein 7.5 g/dL (6.3-8.2)
--- OUTSIDE RECORDS SUMMARY | 2025-05-19 14:23 | XMS_ITS | Clinical Summary ---
Author Organization [facility] Address [address] [place] [address] Care Team Providers Care Bilingual School Psychologist Name Role Phone Mateusz Lackey DO Primary [...] (GLEEVEC) 400 mg tabletIndications :Chronic myelogenous leukemia TAKE 1 TABLET (400 MG) BY MOUTH ONE TIME DAILY WITH BREAKFAST 30 Tablet 3 5 Active Active Problems Problem Noted Date Diagnosed Date Chronic myelogenous leukemia 03/20/2019 Encounters Date Type Department Care Team Description 04/08/2025 Refill [facility] Oncology and Hematology - [place] [address] [place] [address] Melvin Bryant MD Chronic myelogenous leukemia ([facility]/HCC) 03/24/2025 External Device Data [facility] ABSTRACTION Provider, Abstract 03/11/2025 External Device Data [facility] ABSTRACTION Provider, [...] Description 05/26/2025 3:30 PM CDT Office Visit [facility] Oncology and Hematology - [place] [address] [facility] [address] [place] [address] Melvin Bryant MD [address] [facility] [address] [place] [address] Health Maintenance Due Date Last [...] 2018 INFLUENZA VACCINE (#1) 2025 05/16/2018, 2016 Insurance Care Teams Bilingual School Psychologist Relationship Specialty Start Date End Date Mateusz Lackey DO [address] [facility] [address] [place] [id number] PCP - General Internal Medicine 01/28/19
--- OUTSIDE RECORDS SUMMARY | 2025-05-19 14:23 | XMS_ITS | Encounter Summary ---
Author Organization [facility] Address [address] [place] [address] Care Team Providers Care Metallurgist Helper Name Role Phone Unavailable Primary Care Provider Unavailabl e Encounter Details Date Type Department Care Team (Late st Contact Info) Description 03/05/2019 Lab Requisition [facility] Care Pathology Lab [address] [place] [address] Jace Higgins MD [address] [place] [id number] Social History Tobacco Use Types Packs/Day Years Used Date Smoking Tobacco: Never Smokeless Tobacco: Never Sex and Gender Information Value Date Recorded Sex Assigned at Not on file 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 - See microscopic description. Peripheral blood smear: - Chronic myelogenous leukemia, [id number], chronic phase. - See microscopic description. 03/06/2019 6:19 AM [facility] at [address] [facility] AP Comment In summary, the bone marrow is markedly hypercellular with maturing myeloid and megakaryocytic hyperplasia. There is no evidence of increased blasts or significantly increased peripheral basophilia. Thus, the morphologic features combined with the provided clinical information describing a quantitative PCR showing the p210 BCR-ABL-1 gene product make the best classification for this process chronic myelogenous leukemia, YSZ-FII4-xnirtlwi, chronic phase. Storage iron is noted to be decreased. Correlation with additional clinical information and complete cytogenetic/molecular analysis is required for further evaluation of disease phase. KR 03/06/2019 6:19 AM [facility] Peripheral Smear Description CBC [...] normal. Platelet morphology: normal. 03/06/2019 6:19 AM [facility] Bone Marrow Aspirate The aspirate smears lack spicules and are markedly hemodilute. No erythroid progenitors or megakaryocytes are seen. Given the hemodilute nature of the specimen, a differential count is not performed. Blasts are not increased on scanning. Storage iron (by special stain): negative. No spicules present. Control is appropriately reactive. Sideroblastic iron (by special stain): negative. 03/06/2019 6:19 AM [facility] Bone Marrow Core Biopsy [...] (by special stain): Decreased. 03/06/2019 6:19 AM [facility] Flow Cytometry Summary Concurrent flow cytometry ([id number]) shows no evidence of non-Hodgkin lymphoma or high grade myeloid neoplasm. 03/06/2019 6:19 AM [facility] Clinical History CML. 03/06/2019 6:19 AM [facility] Materials Received Received are 18 slides and 3 blocks labeled as [id number] along with the outside pathology report. The [place] [address]. All materials are returned to the referring institution, along with a copy of our final report. 03/06/2019 6:19 AM [facility] Disclaimer The performance characteristics of all immunohistochemical and indirect immunofluorescence stains (if any) cited in this report were determined by the Histopathology Laboratory of [facility]. Some of these tests were [...] the attending (teaching) pathologist. 03/06/2019 6:19 AM [facility] Embedded Images 03/06/2019 6:19 AM [facility] Pathology/Cytology SPECIMEN FROM BONE [...] ORDER DONTE Final Result Performing Organization Address City/State/[facility] Co de Phone Number [facility] PATHOLOG[facility] LAB [address] [phone] documented in this encounter Visit Diagnoses Not on filedocumented in this encounter
--- OUTSIDE RECORDS SUMMARY | 2025-05-19 14:23 | XMS_ITS | Clinical Summary ---
Author Organization [facility] [employer] Address [address] [place] [address] Care Team Providers Care Spray Mixer Name Role Phone Unavailable Primary Care Provider Unavailabl e Source Comments [facility],non-owned Affiliates and Associated Physician Practices is amultiple site organization consisting of ambulatory clinics and hospital sitesin [place], [place], [place] and [place]. This disclosure is being madepursuant to the Care Everywhere program and may not contain all information available regarding this patient. 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 Gender Identity Not on file Sexual Orientation Not on file Last Filed Vital Signs Vital Sign Reading Time Taken Comments Blood Pressure 120/88 08/04/2018 3:54 PM CANADIAN BACON TIER Pulse 100 08/04/2018 3:54 PM CANADIAN BACON TIER Temperature 37.6 C (99.7 F) 08/04/2018 3:54 PM CANADIAN BACON TIER Respiratory Rate 16 08/04/2018 3:54 PM CANADIAN BACON TIER Oxygen Saturation 97% 08/04/2018 3:54 PM CANADIAN BACON TIER Inhaled Oxygen Concentration - - Weight 121.6 kg (268 lb) 08/04/2018 3:54 PM CANADIAN BACON TIER Height 177.8 cm (5' 10) 08/04/2018 3:54 PM CANADIAN BACON TIER Body Mass Index 38.45 08/04/2018 3:54 PM CANADIAN BACON TIER Plan of Treatment Health Maintenance Due Date [...] of 2) 2008 SCREENING FOR DIABETES 08/04/2018 DEPRESSION SCREENING 08/06/2024 COVID-19 VACCINE (1 - 2023-2 5 season) 2025 INFLUENZA VACCINE (#1) 2025 Respiratory Syncytial Virus [...] patient's age to [place] [address] AETNA AETNA
--- OUTSIDE RECORDS SUMMARY | 2025-05-19 14:23 | XMS_ITS | Encounter Summary ---
Author Organization [facility] Address [address] [facility] [place] [address] Care Team Providers Care Gut Carrier Name Role Phone Unavailable Primary Care Provider Unavailabl e Encounter Details Date Type Department Care Team (Late st Contact Info) Description 03/05/2019 Lab Requisition [facility] Care Pathology Lab [address] [place] [address] Jace Higgins MD [address] [place] [address] Chronic myeloid leukemia, BCR/ABL-positive, not having achieved remission Social History Tobacco Use Types Packs/Day Years Used Date Smoking Tobacco: Never Smokeless Tobacco: Never Sex and Gender Information Value Date Recorded Sex Assigned at Not on file 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 - See interpretation. 03/05/2019 4:30 PM [facility] at 1630 CDT Flow Cytometry [...] the flow cytometry specimen is reviewed for senior quality methods specialist purposes. In summary, the bone marrow specimen shows no evidence of a non-Hodgkin lymphoma or high grade myeloid neoplasm. Correlation with additional clinical information and the concurrent bone marrow biopsy specimen ([id number]) is required. KR 03/05/2019 4:30 PM [facility] Flow Cytometry Results Differential Result Comment Flow Cell Count /uL [id number] Total Viability % 82.0 Lymphocytes % 4 Dim CD45 Region % 4 Monocytes % 2 Granulocytes % 89 03/05/2019 4:30 PM [facility] Reason for test Chronic myeloid leukemia, BCR/ABL-positive, not having achieved remission 205.10 03/05/2019 4:30 PM [facility] Client Specimen ID # [id number] 03/05/2019 4:30 PM [facility] Number of markers 19 were performed. A Flow CD10 A Flow CD13 A Flow CD20 A Flow CD2 A Flow CD14 A Flow CD117 A Flow CD11b A Flow CD11c A Flow CD5 A Flow CD19 A Flow CD33 A Flow CD34 A Flow CD45 A Flow CD7 A Flow CD56 A Flow CD64 A [place]+CD19+ A Lambda+CD19+ A Flow HLA-DR 03/05/2019 4:30 PM [facility] Disclaimer Test performed at [facility], [address] [place] [address], [id number]. *The established laboratory minimum viability is 70%. [...] complexity clinical testing. 03/05/2019 4:30 PM CDT [facility] Embedded Images 4:30 PM CDT [facility] Pathology/Cytolo gy BONE MARROW SPECIMEN / Unknown 03/04/2019 10:45 AM CDT 03/05/2019 8:13 AM CDT Jace Higgins MD LAB - PATHOLOGY/CYTOLOGY ORDER DONTE Final Result [facility] [address] [phone] documented in this encounter Visit Diagnoses Diagnosis Chronic myeloid leukemia, BCR/ABL-positive, not having achieved remission (HCC) Chronic myeloid leukemia, without mention of having achieved remission documented in this encounter
== END 2025-05-19 12:48 | disposition home or self-care (01) ==
LOC: ANHLAB 12:48
PROVIDERS: PCP Internal Medicine; Visit Provider Internal Medicine Hematology & Oncology
DX: C92.10 Chronic myeloid leukemia, BCR/ABL-positive, not having achieved remission (principal)
CPT/HCPCS: 36415; 80053; 85025